=== PATIENT | female | born 1985 | race Caucasian/White ===

== ENCOUNTER 2016-11-26 13:22 | Inpatient (IN) | payer MEDICAID, OTHER ==
[2016-11-26] VITALS (60 sets, daily range): BP systolic 124–133; BP diastolic 63–65; PULSE 77–100; RESP 18; TEMP 98.2–99.3
[~2016-11-26] VITALS: Ht 165.1 cm; Wt 98.9 kg
--- NOTE | 2016-11-26 14:48 | PD ---
HPI Chief Complaint vaginal bleeding Date Seen: Nov 26, 2016 Time Seen: 14:43 Travel History International Travel<30 Days: No Contact w/Intl Traveler<30Days: No Known Affected Area: No History of Present Illness HPI 31-year-old who is at 31 weeks 5 days comes in complaining of vaginal spotting this morning at 11:30. Patient had coitus last night but did not notice any abdomen teas until late this morning when she noticed a small amount of blood after wiping. Patient denies contractions, abdominal pain, or vaginal discharge. Patient states that no further bleeding was noticed. Patient has been obtaining care with Silvia Ayala and denies problems. Para: 0 : 1 History Past Medical History Medical History: Denies Significant Hx Past Surgical History Surgical History: No Previous Surgery Family History Family History: Negative Social History Alcohol Use: No Tobacco Use: No Substance Abuse: No Review of Systems Except as stated in HPI: all other systems reviewed are Neg Physical Exam Narrative GENERAL: Well-nourished, well-developed patient. SKIN: Warm and dry. HEAD: Normocephalic and atraumatic. EYES: No scleral icterus. No injection or drainage. ENT: No nasal drainage noted. Mucous membranes pink. Airway patent. NECK: Supple, trachea midline. No JVD. CARDIOVASCULAR: Regular rate and rhythm without murmurs, gallops, or rubs. RESPIRATORY: Breath sounds equal bilaterally. No accessory muscle use. BREASTS: Bilateral exam showed no masses , no retractions, no nipple discharge. ABDOMEN/GI: Abdomen soft, non-tender, bowel sounds present, no rebound, no guarding Gravid to [-32] weeks size Fundal Height: [-] GENITOURINARY: External Genitalia: intact and normal in appearance BUS glands: [Normal-] copious clear amniotic fluid noted in the vaginal vault. Cervix appears closed Cervix: [-0] Dilatation: [-0] Effacement: [50-] Station: [--3] Presentation: [-] Membranes: [ruptured] Uterine Contractions: [Absent-] Bedside ultrasound noted breech presentation, TASHIA 1.9 FHT's: Category: [1-] Baseline: [-145] Reactive: [Moderate-] Variability: [Moderate-] Decels: [Absent-] EXTREMITIES: No cyanosis or edema. BACK: Nontender without obvious deformity. No CVA tenderness. NEUROLOGICAL: Awake and alert. Motor and sensory grossly within normal limits. Five out of 5 muscle strength in all muscle groups. Normal speech. Data Data Vital Signs Reviewed: Yes Orders Ob (2e) Additional Admit Info (11/26/16 14:36) [facility] Medical Record Reviewed: No Plan 31-year-old at 31 weeks 5 days #1 premature rupture membranes patient not in laborstart betamethasone and IV antibiotics for 48 hours followed by oral antibiotics #2 breech presentation patient will need to be delivered by section #3 limited Englishngarian translation services were utilized for consent and for medical care Diagnosis Diagnosis: Primary Impression: 31 weeks gestation of Additional Impression: premature rupture of membranes (PPROM) with unknown onset of labor Rach Simms MD Nov 26, 2016 14:48
[2016-11-26] MEDS ORDERED: PENICILLIN G POTASSIUM INJ 5,000,000 UNITS in SODIUM CHLORIDE 0.9% INJ 100 ML IV ONE (15:00)
[2016-11-26] MEDS ORDERED: SODIUM CHLORIDE 0.9% FLUSH 10 ML FLUSH IV FLUSH PRN (15:00)
--- NOTE | 2016-11-26 15:09 | HHI.HP ---
History & Physical H&P HPI Chief Complaint vaginal bleeding Date Seen: Nov 26, 2016 Time Seen: 14:43 Travel History International Travel<30 Days: No Contact w/Intl Traveler<30Days: No Known Affected Area: No History of Present Illness HPI 31-year-old who is at 31 weeks 5 days comes in complaining of vaginal spotting this morning at 11:30. Patient had coitus last night but did not notice any abdomen teas until late this morning when she noticed a small amount of blood after wiping. Patient denies contractions, abdominal pain, or vaginal discharge. Patient states that no further bleeding was noticed. Patient has been obtaining care with Silvia Ayala and denies problems. Para: 0 : 1 History (Limited) History Past Medical History Medical History: Denies Significant Hx Past Surgical History Surgical History: No Previous Surgery Family History Family History: Negative Social History Alcohol Use: No Tobacco Use: No Substance Abuse: No Allergies-Medications Allergies-Medications ROS Review of Systems Except as stated in HPI: all other systems reviewed are Neg Physical Exam Physical Exam Narrative GENERAL: Well-nourished, well-developed patient. SKIN: Warm and dry. HEAD: Normocephalic and atraumatic. EYES: No scleral icterus. No injection or drainage. ENT: No nasal drainage noted. Mucous membranes pink. Airway patent. NECK: Supple, trachea midline. No JVD. CARDIOVASCULAR: Regular rate and rhythm without murmurs, gallops, or rubs. RESPIRATORY: Breath sounds equal bilaterally. No accessory muscle use. BREASTS: Bilateral exam showed no masses , no retractions, no nipple discharge. ABDOMEN/GI: Abdomen soft, non-tender, bowel sounds present, no rebound, no guarding Gravid to [-32] weeks size Fundal Height: [-] GENITOURINARY: External Genitalia: intact and normal in appearance BUS glands: [Normal-] copious clear amniotic fluid noted in the vaginal vault. Cervix appears closed Cervix: [-0] Dilatation: [-0] Effacement: [50-] Station: [--3] Presentation: [-] Membranes: [ruptured] Uterine Contractions: [Absent-] Bedside ultrasound noted breech presentation, TASHIA 1.9 FHT's: Category: [1-] Baseline: [-145] Reactive: [Moderate-] Variability: [Moderate-] Decels: [Absent-] EXTREMITIES: No cyanosis or edema. BACK: Nontender without obvious deformity. No CVA tenderness. NEUROLOGICAL: Awake and alert. Motor and sensory grossly within normal limits. Five out of 5 muscle strength in all muscle groups. Normal speech. Data Data Data Vital Signs Reviewed: Yes Orders Ob (2e) Additional Admit Info (11/26/16 14:36) MDM MDM Medical Record Reviewed: No Plan 31-year-old at 31 weeks 5 days #1 premature rupture membranes patient not in laborstart betamethasone and IV antibiotics for 48 hours followed by oral antibiotics - Patient was counselled on labor, section due to breech presentation, and chorioamnionitis. She understands that inpatient care will be necessary with the goal of 34 weeks prior to delivery. Will delivery earlier for signs of infection. #2 breech presentation patient will need to be delivered by section #3 limited EnglishHungarian translation services were utilized for consent and for medical care Diagnosis Diagnosis: Primary Impression: 31 weeks gestation of Additional Impression: premature rupture of membranes (PPROM) with unknown onset of labor Rach Simms MD Nov 26, 2016 15:09
[2016-11-26] MEDS: BETAMETHASONE SOD PHOS/ACETATE SUSP 30 MG/5 ML VIAL IM SCH (15:46)
[2016-11-26] MEDS ORDERED: ACETAMINOPHEN 325 MG TAB PO PRN (16:00)
[2016-11-26 16:04] LABS: AUTOMATED NEUTROPHIL # 13.7 TH/MM3 (1.8-7.7); BASOPHIL % 0.1 % (0.0-2.0); EOSINOPHIL % 0.3 % (0.0-4.0); HEMATOCRIT 39.8 % (35.0-46.0); HEMO FLAGS DIFF FINAL; LYMPH % 15.5 % (9.0-44.0); LYMPHOCYTE # 2.7 TH/MM3 (1.0-4.8); MEAN CELL VOLUME 93.7 FL (80.0-100.0); MEAN CORPUSCULAR HEMOGLOBIN 32.2 PG (27.0-34.0); MEAN CORPUSCULAR HGB CONC 34.3 % (32.0-36.0); MONO % 4.3 % (0.0-8.0); NEUT % 79.8 % (16.0-70.0); PLATELET COUNT 277 TH/MM3 (150-450); RED BLOOD COUNT 4.25 MIL/MM3 (4.00-5.30); WHITE BLOOD COUNT 17.2 TH/MM3 (4.0-11.0)
[2016-11-26 16:12] LABS: BLOOD, URINE NEG (NEG); COMMENT (UR) CULT NOT INDICATED; CULTURE IF INDICATED CULT NOT INDICATED; GLUCOSE,URINE NEG (NEG); KETONE, URINE 40 mg/dL (NEG); MUCUS URINE FEW /lpf (OCC); NITRITE,URINE NEG (NEG); PH, URINE 5.5 (5.0-8.5); SQUAMOUS EPITHELIAL CELL URINE 2 /hpf (0-5); URINE COLOR YELLOW (YELLW/STRAW)
[2016-11-26] MEDS: NON-FORMULARY DRUG 250 EA in SODIUM CHLORIDE 0.9% INJ 100 ML IV SCH ×2 (16:59→22:00)
--- NOTE | 2016-11-26 17:22 | HHI.PR ---
DATA MODELING ARCHITECT Note Note Breech presentation with oligohydramnios by sonogram Formal report to follow [facility] [id number] Rach Simms MD Nov 26, 2016 17:22
[2016-11-26] MEDS: LACTATED RINGER'S 1000 ML INJ 1,000 ML IV SCH ×2 (18:21→18:22)
[2016-11-26] MEDS: PENICILLIN G POTASSIUM INJ 2,500,000 UNITS in SODIUM CHLORIDE 0.9% INJ 100 ML IV SCH (20:01)
[2016-11-26] MEDS: SODIUM CHLORIDE 0.9% FLUSH 10 ML FLUSH IV FLUSH SCH (20:01)
--- NOTE | 2016-11-26 23:01 | HHI.PR ---
Addendum to Inpatient Note Addendum Reason: Additional Documentation Additional Information Consult Maternal Hx: 31 y/o, G 1 P 0 at 31.5 weeks gestation with diagnosis of Labor with PPROM/SROM Maternal risk factors/complications: Breech presentation Maternal Medications: PNV, Iron, Antibiotics Betamethasone first dose on 11/26 Social: Marital status: single Resides locally - has lots of local family support Speaks very little Swedish - needs Persian translation Family Hx: Mother reports no genetic or inherited conditions. Substance Abuse: Denies - preliminary urine tox negative Discussion: Nurse Practitioner met with mother regarding threatened delivery at 31.5 weeks gestation secondary to SROM/PPROM Bedside translation by Neelam Parkinson RN - Labor and Delivery This consultation included information regarding generalized care of the baby in the NICU, common problems, complications and survival and/or disability potential if delivered at this time Also included in this review was the admission process to the NICU, including possible procedures such as intubation and placement of umbilical catheter(s). Additionally, there was a discussion of the disease processes that may affect an of this gestation, including but not limited to respiratory distress, infection and nutritional concerns. Discussion detailed various forms of respiratory support for immature lungs including use of surfactant and placement of lines. Discussion focused on CPAP and/or ventilator support as needed for an infant of this gestation. There was a review of nutritional support challenges including IV and gavage feeding. There was discussion regarding of possible feeding intolerances and intestinal complications. Breast feeding and early breast milk pumping was strongly encouraged. Briefly discussed apnea of prematurity. Mother had questions regarding expected length of baby's hospital stay. Expected discharge would likely occur closer to the due date if the infant has an uncomplicated hospitalization, however may be sooner based on feeding tolerance, weight gain, temperature control, and absence of apnea. Discussed Family Centered Care and liberal NICU visitation policy. Mother and staff aware that we will be glad to speak to her again as her progresses to update her on prognosis related to increasing gestational age. Greater than 50% of the consultation time was spent with the patient. ALEXEY MCCOY Nov 26, 2016 23:01
[2016-11-27] VITALS (59 sets, daily range): BP systolic 107–130; BP diastolic 47–70; PULSE 69–89; RESP 16–18; TEMP 97.7–99.1
[2016-11-27] MEDS: PENICILLIN G POTASSIUM INJ 2,500,000 UNITS in SODIUM CHLORIDE 0.9% INJ 100 ML IV SCH ×5 (04:00→12:16)
[2016-11-27] MEDS: NON-FORMULARY DRUG 250 EA in SODIUM CHLORIDE 0.9% INJ 100 ML IV SCH ×4 (06:00→22:28)
[2016-11-27] MEDS: MULTIVIT/MIN/PREN/FOL AC/IRON PRENATAL TAB PO SCH (08:14)
[2016-11-27] MEDS: LACTATED RINGER'S 1000 ML INJ 1,000 ML IV SCH ×2 (08:14→20:10)
[2016-11-27] MEDS: SODIUM CHLORIDE 0.9% FLUSH 10 ML FLUSH IV FLUSH SCH ×2 (08:14→21:00)
--- NOTE | 2016-11-27 09:51 | PD.OB.ANTE ---
Subjective Interval History No acute issues overnight. Vitals are stable, patient remained afebrile. She endorses good movement. She denies any vaginal bleeding or discharge. No contractions. Antepartum ROS: Reports: movement normal, Denies: New complaints, Loss of fluid, Vaginal bleeding, Contractions ( Lisa Trujillo MD, R3) Objective Vital Signs Vital Signs Date Time Temp Pulse Resp B/P Pulse Ox O2 Delivery O2 Flow Rate FiO2 11/27/16 08:18 78 126/52 11/27/16 08:17 18 11/27/16 08:15 87 11/27/16 08:12 98.3 11/27/16 08:10 85 11/27/16 08:05 87 11/27/16 08:00 84 11/27/16 07:00 16 11/27/16 06:55 75 11/27/16 06:50 71 11/27/16 06:45 78 11/27/16 06:40 72 11/27/16 06:35 89 11/27/16 06:30 73 11/27/16 06:25 74 11/27/16 06:20 70 11/27/16 06:15 71 11/27/16 06:13 72 107/54 11/27/16 06:10 69 11/27/16 06:05 78 11/27/16 06:00 98.1 18 11/27/16 06:00 77 11/27/16 02:00 98.4 18 11/26/16 22:31 98.2 11/26/16 22:31 18 11/26/16 22:30 78 11/26/16 22:30 78 133/63 11/26/16 22:25 78 11/26/16 22:20 81 11/26/16 22:15 85 11/26/16 22:10 84 11/26/16 22:05 84 11/26/16 22:00 81 11/26/16 20:00 18 11/26/16 19:17 99.3 11/26/16 19:16 88 124/64 11/26/16 19:15 88 11/26/16 19:10 90 11/26/16 19:05 93 11/26/16 19:00 87 11/26/16 19:00 18 11/26/16 18:50 91 11/26/16 18:45 93 11/26/16 18:40 91 11/26/16 18:35 93 11/26/16 18:30 94 11/26/16 18:25 94 11/26/16 18:20 96 11/26/16 18:15 96 11/26/16 18:10 97 11/26/16 17:55 90 11/26/16 17:50 91 11/26/16 17:45 91 11/26/16 17:40 100 11/26/16 17:35 93 11/26/16 17:32 98.5 11/26/16 17:30 84 11/26/16 17:25 81 11/26/16 17:20 81 11/26/16 17:15 86 11/26/16 17:10 85 11/26/16 17:06 18 11/26/16 17:05 83 11/26/16 17:04 84 128/65 11/26/16 16:50 88 11/26/16 16:45 88 11/26/16 16:40 88 11/26/16 16:35 86 11/26/16 16:30 81 11/26/16 16:25 82 11/26/16 16:20 79 11/26/16 16:15 80 11/26/16 16:10 83 11/26/16 16:05 84 11/26/16 16:00 83 11/26/16 15:35 80 11/26/16 15:30 82 11/26/16 15:25 82 11/26/16 15:20 82 11/26/16 15:15 81 11/26/16 15:10 78 11/26/16 15:05 81 11/26/16 15:00 85 11/26/16 14:55 87 11/26/16 14:50 77 11/26/16 14:45 82 Lab & Micro Results Test 11/26/16 11/26/16 15:00 15:15 White Blood Count 17.2 TH/MM3 Red Blood Count 4.25 MIL/MM3 Hemoglobin 13.7 GM/DL Hematocrit 39.8 % Mean Corpuscular Volume 93.7 FL Mean Corpuscular Hemoglobin 32.2 PG Mean Corpuscular Hemoglobin 34.3 % Concent Red Cell Distribution Width 13.0 % Platelet Count 277 TH/MM3 Mean Platelet Volume 9.3 FL Neutrophils (%) (Auto) 79.8 % Lymphocytes (%) (Auto) 15.5 % Monocytes (%) (Auto) 4.3 % Eosinophils (%) (Auto) 0.3 % Basophils (%) (Auto) 0.1 % Neutrophils # (Auto) 13.7 TH/MM3 Lymphocytes # (Auto) 2.7 TH/MM3 Monocytes # (Auto) 0.7 TH/MM3 Eosinophils # (Auto) 0.0 TH/MM3 Basophils # (Auto) 0.0 TH/MM3 CBC Comment DIFF FINAL Differential Comment Band and Hold Urine Color YELLOW Urine Turbidity HAZY Urine pH 5.5 Urine Specific Thornton 1.027 Urine Protein TRACE mg/dL Urine Glucose (UA) NEG mg/dL Urine Ketones 40 mg/dL Urine Occult Blood NEG Urine Nitrite NEG Urine Bilirubin NEG Urine Urobilinogen LESS THAN 2.0 MG/DL Urine Leukocyte Esterase NEG Urine RBC 1 /hpf Urine WBC 2 /hpf Urine Squamous Epithelial 2 /hpf Cells Urine Mucus FEW /lpf Microscopic Urinalysis Comment CULT NOT INDICATED Urine Opiates Screen NEG Urine Barbiturates Screen NEG Urine Amphetamines Screen NEG Urine Benzodiazepines Screen NEG Urine Cocaine Screen NEG Urine Cannabinoids Screen NEG Physical Exam GENERAL: Well-nourished, well-developed patient. CARDIOVASCULAR: Regular rate and rhythm without murmurs, gallops, or rubs. RESPIRATORY: Breath sounds equal bilaterally. No accessory muscle use. ABDOMEN/GI: Abdomen soft, non-tender. Fundus: 31 GENITOURINARY: External Genitalia: intact and normal in appearance Cervix: posterior Dilatation: 0 Effacement: 0 Station: -3 Presentation: breech Membranes: PPROM Uterine Contractions: None FHT's: Category: I Baseline: 135 Reactive: + Variability: moderate Decels: none EXTREMITIES: No cyanosis or edema, non-tender, without signs of DVT. (Lisa Trujillo MD, R3) Assessment and Plan Assessment and Plan 31 year old at 31-6/7 weeks gestation. 1. IUP- Category I tracing, reassuring. 2. PPROM- Continue erythromycin and penicillin. Will obtain GBS PCR today. s/p Betamethasone yesterday, second dose today. 3. Breech presentation dw Dr. Simms and Dr. Malhotra R1 (Lisa Trujillo MD, R3) Collaborating MD Comments Patient seen and evaluated with resident team. Continue present care with antibiotics and complete betamethasone. (Rach Simms MD) Lisa Trujillo MD, R3 Nov 27, 2016 09:51 Rach Simms MD Nov 28, 2016 11:02
[2016-11-27] MEDS: AMPICILLIN INJ 2,000 MG in SODIUM CHLORIDE 0.9% INJ 100 ML IV SCH ×2 (15:08→20:50)
[2016-11-27] MEDS: BETAMETHASONE SOD PHOS/ACETATE SUSP 30 MG/5 ML VIAL IM SCH (16:04)
[2016-11-28] VITALS (105 sets, daily range): BP systolic 118–131; BP diastolic 56–63; PULSE 69–93; RESP 18; TEMP 97.7–98.5
[2016-11-28] MEDS: AMPICILLIN INJ 2,000 MG in SODIUM CHLORIDE 0.9% INJ 100 ML IV SCH ×3 (03:18→14:57)
[2016-11-28] MEDS: NON-FORMULARY DRUG 250 EA in SODIUM CHLORIDE 0.9% INJ 100 ML IV SCH ×2 (04:34→10:04)
[2016-11-28 06:07] LABS: AUTOMATED NEUTROPHIL # 19.5 TH/MM3 (1.8-7.7); HEMATOCRIT 33.5 % (35.0-46.0); LYMPH % 8.6 % (9.0-44.0); LYMPHOCYTE # 1.9 TH/MM3 (1.0-4.8); MEAN CELL VOLUME 93.4 FL (80.0-100.0); MEAN CORPUSCULAR HEMOGLOBIN 31.9 PG (27.0-34.0); MEAN CORPUSCULAR HGB CONC 34.1 % (32.0-36.0); MONO % 4.6 % (0.0-8.0); NEUT % 86.8 % (16.0-70.0); PLATELET COUNT 226 TH/MM3 (150-450); RED BLOOD COUNT 3.59 MIL/MM3 (4.00-5.30); WHITE BLOOD COUNT 22.4 TH/MM3 (4.0-11.0)
[2016-11-28 06:13] LABS: HEMO FLAGS AUTO DIFF
[2016-11-28 07:46] LABS: BANDS 11 % (0-6); NEUTROPHIL # MANUAL DIFF 19.9 TH/MM3 (1.8-7.7); PLATELET ESTIMATE SMEAR NORMAL (NORMAL); PLATELET MORPHOLOGY NORMAL (NORMAL); POLYS (SEG NEUTROPHILS) 78 % (16-70); SCAN/DIFF FINAL DIFF MANUAL; WBC DIFF SAMPLE 100
--- NOTE | 2016-11-28 07:59 | PD.OB.ANTE ---
Subjective Interval History No acute issues overnight. Vitals are stable, patient remains afebrile. Positive movement. No contractions or vaginal bleeding. No chest pain, leg pain, or shortness of breath. Antepartum ROS: Reports: movement normal, Denies: New complaints, Loss of fluid, Vaginal bleeding, Contractions Objective Vital Signs Vital Signs Date Time Temp Pulse Resp B/P Pulse Ox O2 Delivery O2 Flow Rate FiO2 11/28/16 03:22 93 118/60 11/28/16 03:21 98.3 11/28/16 03:20 86 11/28/16 03:20 18 11/28/16 03:15 84 11/28/16 03:10 84 11/28/16 03:05 84 11/28/16 03:00 82 11/28/16 00:17 69 130/56 11/28/16 00:16 97.7 18 11/28/16 00:15 74 11/28/16 00:05 77 11/28/16 00:00 79 11/27/16 22:29 98.5 11/27/16 20:56 98.0 80 129/70 11/27/16 20:55 81 11/27/16 20:55 16 11/27/16 20:50 80 11/27/16 20:45 82 11/27/16 20:40 81 11/27/16 20:35 80 11/27/16 20:30 79 11/27/16 20:25 82 11/27/16 20:20 77 11/27/16 20:15 83 11/27/16 20:10 84 11/27/16 20:05 83 11/27/16 20:00 82 11/27/16 15:55 77 11/27/16 15:50 76 11/27/16 15:45 75 11/27/16 15:40 73 11/27/16 15:35 74 11/27/16 15:30 75 11/27/16 15:25 78 11/27/16 15:20 78 11/27/16 15:15 84 11/27/16 15:13 80 116/47 11/27/16 15:10 98.1 16 11/27/16 15:10 81 11/27/16 15:05 82 11/27/16 15:00 81 11/27/16 12:30 81 11/27/16 12:28 16 11/27/16 12:25 78 11/27/16 12:20 73 11/27/16 12:15 82 130/68 11/27/16 12:15 84 11/27/16 12:14 99.1 11/27/16 12:10 82 11/27/16 12:05 80 11/27/16 12:00 85 11/27/16 10:11 97.7 11/27/16 08:18 78 126/52 11/27/16 08:17 18 11/27/16 08:15 87 11/27/16 08:12 98.3 11/27/16 08:10 85 11/27/16 08:05 87 11/27/16 08:00 84 Lab & Micro Results Test 11/27/16 11/28/16 09:25 04:46 Group B Streptococcus (PCR) NEGATIVE White Blood Count 22.4 TH/MM3 Red Blood Count 3.59 MIL/MM3 Hemoglobin 11.4 GM/DL Hematocrit 33.5 % Mean Corpuscular Volume 93.4 FL Mean Corpuscular Hemoglobin 31.9 PG Mean Corpuscular Hemoglobin 34.1 % Concent Red Cell Distribution Width 13.0 % Platelet Count 226 TH/MM3 Mean Platelet Volume 9.2 FL Neutrophils (%) (Auto) 86.8 % Lymphocytes (%) (Auto) 8.6 % Monocytes (%) (Auto) 4.6 % Eosinophils (%) (Auto) 0.0 % Basophils (%) (Auto) 0.0 % Neutrophils # (Auto) 19.5 TH/MM3 Lymphocytes # (Auto) 1.9 TH/MM3 Monocytes # (Auto) 1.0 TH/MM3 Eosinophils # (Auto) 0.0 TH/MM3 Basophils # (Auto) 0.0 TH/MM3 CBC Comment AUTO DIFF Differential Total Cells 100 Counted Neutrophils % (Manual) 78 % Band Neutrophils % 11 % Lymphocytes % 9 % Monocytes % 2 % Neutrophils # (Manual) 19.9 TH/MM3 Differential Comment FINAL DIFF MANUAL Platelet Estimate NORMAL Platelet Morphology Comment NORMAL Red Cell Morphology Comment NORMAL Date/Time Procedure Status Source Growth 11/27/16 09:25 Group B Streptococcus Screen Received Genital Genital Region Pending Physical Exam GENERAL: Well-nourished, well-developed patient. CARDIOVASCULAR: Regular rate and rhythm without murmurs, gallops, or rubs. RESPIRATORY: Breath sounds equal bilaterally. No accessory muscle use. ABDOMEN/GI: Abdomen soft, non-tender. Fundus: 32 GENITOURINARY: External Genitalia: intact and normal in appearance Cervix: posterior Dilatation: 0 Effacement: 0 Station: -2 Presentation: breech Membranes: SROM Uterine Contractions: none FHT's: Category: I Baseline: 145 Reactive: + Variability: moderate Decels: none EXTREMITIES: No cyanosis or edema, non-tender, without signs of DVT. Assessment and Plan Assessment and Plan 31 year old at 32-0/7 weeks gestation. 1. IUP- Category I tracing, reassuring. 2. PPROM- Continue IV ampicillin and erythromycin x 48 hours. Will switch to PO amoxicillin and erythromycin this afternoon at 48 hour harish. GBS negative. s/p Betamethasone x 2. 3. Breech presentation dw Dr. Chauhan and Dr. Malhotra R1 Lisa Trujillo MD, R3 Nov 28, 2016 07:59
[2016-11-28] MEDS: SODIUM CHLORIDE 0.9% FLUSH 10 ML FLUSH IV FLUSH SCH ×2 (09:00→21:00)
[2016-11-28] MEDS: MULTIVIT/MIN/PREN/FOL AC/IRON PRENATAL TAB PO SCH (09:38)
[2016-11-28] MEDS: LACTATED RINGER'S 1000 ML INJ 1,000 ML IV SCH ×2 (17:20→22:50)
[2016-11-28] MEDS: ERYTHROMYCIN EC 333 MG TABEC PO SCH ×2 (17:21→22:00)
[2016-11-28] MEDS: AMOXICILLIN (TRIHYDRATE) 250 MG CAP PO SCH ×2 (17:21→22:00)
[2016-11-29] VITALS (233 sets, daily range): BP systolic 129–133; BP diastolic 61–66; PULSE 66–101; RESP 9–19; TEMP 97.9–98.7
[2016-11-29] MEDS: AMOXICILLIN (TRIHYDRATE) 250 MG CAP PO SCH ×3 (06:10→20:57)
[2016-11-29] MEDS: ERYTHROMYCIN EC 333 MG TABEC PO SCH ×3 (06:10→20:57)
--- NOTE | 2016-11-29 08:15 | PD.OB.ANTE ---
Subjective Interval History No acute issues overnight. Vitals are stable, patient remains afebrile. She denies any contractions, but continues to feel leaking fluid. Yesterday, around 3 in the afternoon she felt a large gush of fluid. She continues to have good movement. No vaginal bleeding. No chest pain, shortness of breath, or leg pain. Antepartum ROS: Reports: Loss of fluid, movement normal, Denies: New complaints, Vaginal bleeding, Contractions Objective Vital Signs Vital Signs Date Time Temp Pulse Resp B/P Pulse Ox O2 Delivery O2 Flow Rate FiO2 11/29/16 07:18 97.9 11/29/16 07:10 80 11/29/16 07:05 77 11/29/16 07:00 67 11/29/16 06:55 98 11/29/16 06:45 70 11/29/16 06:40 69 11/29/16 06:35 69 11/29/16 06:30 69 11/29/16 06:25 75 11/29/16 06:20 74 11/29/16 06:15 69 11/29/16 06:10 80 11/29/16 06:05 75 11/29/16 06:00 73 11/29/16 05:55 76 11/29/16 05:50 71 11/29/16 05:45 76 11/29/16 05:40 72 11/29/16 05:35 67 11/29/16 05:30 66 11/29/16 05:25 69 11/29/16 05:20 70 11/29/16 05:15 70 11/29/16 05:10 70 11/29/16 05:05 71 11/29/16 05:00 72 11/29/16 04:55 71 11/29/16 04:50 71 11/29/16 04:45 73 11/29/16 04:40 74 11/29/16 04:35 70 11/29/16 04:30 71 11/29/16 04:25 74 11/29/16 04:20 73 11/29/16 04:15 75 11/29/16 04:10 71 11/29/16 04:05 74 11/29/16 04:00 72 11/29/16 03:55 75 11/29/16 03:50 81 11/29/16 03:45 74 8/16/17 03:40 76 16/17 03:35 70 16/17 03:30 71 16/17 03:25 71 1617 03:20 69 16/17 03:15 69 16/17 03:10 69 1617 03:05 69 1617 03:00 70 16 02:55 71 16 02:50 69 1617 02:45 70 1617 02:40 71 1617 02:35 70 1617 02:30 71 1617 02:25 72 1617 02:20 73 16 02:15 71 11/29/16 02:10 71 11/29/16 02:05 80 16 02:00 87 11/29/16 01:55 85 16 01:50 78 1617 01:45 78 1617 01:40 78 1617 01:35 76 1617 01:30 76 1617 01:25 75 1617 01:20 77 1617 01:15 75 16 01:10 74 16 01:05 77 11/29/16 01:00 77 16 00:55 76 1617 00:50 72 1617 00:45 68 1617 00:40 75 1617 00:30 71 1617 00:25 71 1617 00:20 72 1617 00:15 70 1617 00:10 75 1617 00:05 72 16 00:00 71 11/28/16 23:55 71 11/28/16 23:50 71 17 23:45 73 17 23:40 73 1517 23:35 73 1517 23:30 74 17 23:25 72 1517 23:20 84 1517 23:15 74 11/28/16 23:10 76 11/28/16 23:05 89 11/28/16 20:55 80 11/2817 20:50 75 15/17 20:45 82 1517 20:40 76 1517 20:35 76 1517 20:30 74 1517 20:25 75 1517 20:20 77 1517 20:15 77 15 20:10 80 15 20:02 77 121/59 11/28/16 20:00 79 15 19:55 78 1517 19:50 77 1517 19:45 76 1517 19:40 78 15 19:35 80 15 19:30 80 15 19:25 80 15 19:20 81 17 19:15 81 15 19:10 82 15 19:05 77 15 19:00 81 17 16:55 93 1517 16:50 83 1517 16:45 82 1517 16:40 73 1517 16:35 80 1517 16:30 78 1517 16:25 75 1517 16:15 85 1517 16:10 77 1517 16:05 77 1517 16:00 90 1517 15:50 77 1517 15:45 83 1517 15:40 89 1517 15:35 79 1517 15:30 77 1517 15:25 80 1517 15:20 79 1517 15:15 82 1517 15:10 89 1517 15:05 84 1517 15:00 81 1517 13:55 87 1517 13:50 91 1517 13:45 88 15/17 13:40 89 1517 13:35 90 15/17 13:30 89 15/17 13:25 88 15/17 13:20 91 1517 13:15 89 1517 13:10 89 11/28/16 13:05 91 11/28/16 13:00 88 11/28/16 12:55 91 11/28/16 12:50 91 11/28/16 12:45 89 11/28/16 12:40 81 11/28/16 12:35 78 11/28/16 12:30 86 11/28/16 12:25 79 11/28/16 12:20 81 11/28/16 12:15 84 11/28/16 12:10 79 11/28/16 12:09 98.1 11/28/16 12:09 18 11/28/16 12:07 81 131/63 11/28/16 12:00 74 11/28/16 09:41 18 11/28/16 09:40 92 11/28/16 09:37 85 118/63 11/28/16 09:35 98.5 11/28/16 09:35 88 11/28/16 09:30 82 11/28/16 09:25 85 11/28/16 09:20 89 11/28/16 09:15 89 11/28/16 09:10 91 11/28/16 09:05 87 11/28/16 09:00 89 Lab & Micro Results Date/Time Procedure Status Source Growth 11/27/16 09:25 Group B Streptococcus Screen - Preliminary Resulted Genital Genital Region RESULTS PENDING Physical Exam GENERAL: Well-nourished, well-developed patient. CARDIOVASCULAR: Regular rate and rhythm without murmurs, gallops, or rubs. RESPIRATORY: Breath sounds equal bilaterally. No accessory muscle use. ABDOMEN/GI: Abdomen soft, non-tender. Fundus: 32 GENITOURINARY: External Genitalia: intact and normal in appearance Presentation: breech Membranes: SROM Uterine Contractions: none FHT's: Category: I Baseline: 140 Reactive: + Variability: moderate Decels: none EXTREMITIES: No cyanosis or edema, non-tender, without signs of DVT. Assessment and Plan Assessment and Plan 31 year old at 32-1/7 weeks gestation. 1. IUP- Category I tracing, reassuring. 2. PPROM- s/p IV ampicillin and erythromycin x 48 hours. Now on amoxicillin 250mg PO Q8H and erythromycin 333mg PO Q8H (both started 11/28/16 at 1721). GBS negative. s/p Betamethasone x 2. 3. Breech presentation dw Dr. Simms and Dr. Malhotra R1 Lisa Trujillo MD, R3 Nov 29, 2016 08:15
[2016-11-29] MEDS: MULTIVIT/MIN/PREN/FOL AC/IRON PRENATAL TAB PO SCH (08:35)
[2016-11-29] MEDS: SODIUM CHLORIDE 0.9% FLUSH 10 ML FLUSH IV FLUSH SCH ×2 (08:35→21:00)
[2016-11-29] MEDS: ZOLPIDEM TARTRATE 5 MG TAB PO PRN (22:44)
[2016-11-30] VITALS (25 sets, daily range): BP systolic 109–121; BP diastolic 38–60; PULSE 72–106; RESP 18; TEMP 98–98.3
[2016-11-30] MEDS: AMOXICILLIN (TRIHYDRATE) 250 MG CAP PO SCH ×3 (06:54→22:01)
[2016-11-30] MEDS: LACTATED RINGER'S 1000 ML INJ 1,000 ML IV SCH ×3 (06:54→22:01)
[2016-11-30] MEDS: ERYTHROMYCIN EC 333 MG TABEC PO SCH ×3 (06:54→22:01)
--- NOTE | 2016-11-30 07:08 | PD.OB.ANTE ---
Subjective Interval History No acute issues overnight. Vitals are stable, patient remains afebrile. She denies any contractions. She did have a small amount of bleeding last night. She continues to feel leaking fluid. Positive movement. No chest pain, shortness of breath, fever, chills, nausea or vomiting. Antepartum ROS: Reports: Loss of fluid, Vaginal bleeding (small amount last night), movement normal, Denies: New complaints, Contractions Objective Vital Signs Vital Signs Date Time Temp Pulse Resp B/P Pulse Ox O2 Delivery O2 Flow Rate FiO2 11/30/16 06:55 98.0 79 18 11/30/16 06:54 121/60 11/30/16 05:55 75 11/30/16 04:50 86 11/30/16 03:55 88 11/30/16 02:55 72 11/30/16 02:00 98.0 18 11/30/16 01:55 77 11/30/16 00:55 80 11/29/16 23:50 83 11/29/16 22:55 75 11/29/16 22:48 98.0 18 11/29/16 22:45 80 11/29/16 22:40 74 11/29/16 22:38 132/66 11/29/16 22:35 77 11/29/16 21:55 81 11/29/16 20:55 88 11/29/16 20:40 79 11/29/16 20:38 98.7 18 11/29/16 20:37 76 129/62 11/29/16 19:50 78 11/29/16 19:20 82 11/29/16 19:15 80 11/29/16 19:10 81 11/29/16 19:05 81 11/29/16 19:00 86 11/29/16 18:55 87 11/29/16 18:45 82 11/29/16 18:40 82 11/29/16 18:35 80 11/29/16 18:30 83 11/29/16 18:25 84 11/29/16 18:20 83 11/29/16 18:15 76 11/29/16 18:10 86 11/29/16 18:05 85 11/29/16 18:00 81 11/29/16 18:00 18 11/29/16 17:55 87 8/16/17 17:50 81 8/16/17 17:45 80 8/16/17 17:35 87 8/16/17 17:30 86 8/16/17 17:25 84 816/17 17:20 86 816/17 17:15 84 816/17 17:10 86 816/17 17:05 86 16/17 17:00 86 16/17 17:00 98.6 16/17 17:00 18 816/17 16:55 88 16/17 16:50 81 16/17 16:45 83 16/17 16:40 79 16/17 16:35 82 16/17 16:30 86 16/17 16:20 101 16/17 16:05 79 16/17 16:00 80 16/17 16:00 17 16/17 15:55 80 16/17 15:50 78 16/17 15:45 78 16/17 15:40 80 16/17 15:35 77 8/16/17 15:30 95 16/17 15:25 81 /16/17 15:20 80 16/17 15:15 83 16/17 15:10 81 16/17 15:05 78 16/17 15:00 17 16/17 15:00 81 16/17 14:55 83 /16/17 14:50 92 16/17 14:45 83 16/17 14:40 79 16/17 14:35 77 816/17 14:25 85 8/16/17 14:20 81 8/16/17 14:15 88 816/17 14:10 86 8/16/17 14:05 85 8/16/17 14:00 94 8/16/17 14:00 19 8/16/17 13:55 82 8/16/17 13:50 85 8/16/17 13:45 81 8/16/17 13:40 82 8/16/17 13:35 80 8/16/17 13:33 98.5 8/16/17 13:30 88 8/16/17 13:25 85 8/16/17 13:20 88 8/16/17 13:15 86 8/16/17 13:10 100 /16/17 13:00 82 8/16/17 13:00 18 816/17 12:55 88 816/17 12:50 82 8/16/17 12:45 84 8/16/17 12:40 83 8/16/17 12:35 88 16/17 12:30 87 /16/17 12:25 81 16/17 12:20 77 16/17 12:15 79 816/17 12:10 79 16/17 12:05 78 16/17 12:00 18 16/17 12:00 75 16/17 11:55 82 16/17 11:50 78 16/17 11:50 78 16/17 11:45 87 /16/17 11:45 87 16/17 11:35 78 16/17 11:35 78 16/17 11:30 81 16/17 11:30 81 8/16/17 11:25 85 8/16/17 11:25 85 8/16/17 11:20 83 8/16/17 11:15 93 8/16/17 11:05 82 8/16/17 11:00 97.9 16/17 11:00 73 8/16/17 11:00 18 816/17 10:55 74 8/16/17 10:50 72 8/16/17 10:45 73 8/16/17 10:40 74 8/16/17 10:35 78 8/16/17 10:30 76 8/16/17 10:25 77 8/16/17 10:20 81 8/16/17 10:15 82 8/16/17 10:10 76 8/16/17 10:00 19 8/16/17 10:00 9 8/16/17 09:40 83 8/16/17 09:35 81 8/16/17 09:30 85 8/16/17 09:25 86 8/16/17 09:20 83 8/16/17 09:15 85 8/16/17 09:10 82 816/17 09:05 86 16/17 09:00 18 8/16/17 09:00 92 11/29/16 08:55 82 11/29/16 08:50 80 11/29/16 08:45 80 11/29/16 08:40 85 11/29/16 08:35 80 11/29/16 08:30 84 11/29/16 08:25 84 11/29/16 08:20 80 11/29/16 08:15 80 11/29/16 08:10 82 11/29/16 08:05 82 11/29/16 08:00 89 11/29/16 08:00 18 11/29/16 07:55 88 11/29/16 07:50 85 11/29/16 07:40 84 11/29/16 07:35 83 11/29/16 07:30 78 11/29/16 07:25 82 11/29/16 07:20 79 11/29/16 07:18 97.9 11/29/16 07:17 76 133/61 11/29/16 07:15 83 11/29/16 07:10 80 Lab & Micro Results Date/Time Procedure Status Source Growth 11/27/16 09:25 Group B Streptococcus Screen - Preliminary Resulted Genital Genital Region NO GROUP B STREP ISOLATED Physical Exam GENERAL: Well-nourished, well-developed patient. CARDIOVASCULAR: Regular rate and rhythm without murmurs, gallops, or rubs. RESPIRATORY: Breath sounds equal bilaterally. No accessory muscle use. ABDOMEN/GI: Abdomen soft, non-tender. Fundus: 32 GENITOURINARY: External Genitalia: intact and normal in appearance Presentation: breech Membranes: SROM Uterine Contractions: none FHT's: Category: I Baseline: 150 Reactive: + Variability: moderate Decels: None EXTREMITIES: No cyanosis or edema, non-tender, without signs of DVT. Assessment and Plan Assessment and Plan 31 year old at 32-2/7 weeks gestation. 1. IUP- Category I tracing, reassuring. 2. PPROM- s/p IV ampicillin and erythromycin x 48 hours. Now on amoxicillin 250mg PO Q8H and erythromycin 333mg PO Q8H x 5 days (both started 11/28/16 at 1721). GBS negative. s/p Betamethasone x 2. 3. Breech presentation 4. Obtain BPP/US to evaluate TASHIA, growth parameters, and EFW dw Dr. Chauhan and Dr. Malhotra R1 Lisa Trujillo MD, R3 Nov 30, 2016 07:07
[2016-11-30] MEDS: MULTIVIT/MIN/PREN/FOL AC/IRON PRENATAL TAB PO SCH (08:49)
[2016-11-30] MEDS: SODIUM CHLORIDE 0.9% FLUSH 10 ML FLUSH IV FLUSH SCH ×2 (09:00→21:00)
[2016-11-30 17:28] LABS: BASOPHIL % 0.1 % (0.0-2.0); EOSINOPHIL # 0.1 TH/MM3 (0-0.4); EOSINOPHIL % 0.3 % (0.0-4.0); HEMATOCRIT 36.4 % (35.0-46.0); HEMO FLAGS DIFF FINAL; LYMPH % 13.2 % (9.0-44.0); LYMPHOCYTE # 2.8 TH/MM3 (1.0-4.8); MEAN CELL VOLUME 95.1 FL (80.0-100.0); MEAN CORPUSCULAR HEMOGLOBIN 31.7 PG (27.0-34.0); MEAN CORPUSCULAR HGB CONC 33.3 % (32.0-36.0); MONO % 7.4 % (0.0-8.0); PLATELET COUNT 268 TH/MM3 (150-450); RED BLOOD COUNT 3.82 MIL/MM3 (4.00-5.30); WHITE BLOOD COUNT 21.6 TH/MM3 (4.0-11.0)
[2016-12-01] VITALS (19 sets, daily range): BP systolic 116–138; BP diastolic 53–68; PULSE 80–94; RESP 16–18; TEMP 98–98.4
[2016-12-01 05:51] LABS: HEMATOCRIT 38.1 % (35.0-46.0); MEAN CELL VOLUME 95.2 FL (80.0-100.0); MEAN CORPUSCULAR HEMOGLOBIN 31.8 PG (27.0-34.0); MEAN CORPUSCULAR HGB CONC 33.4 % (32.0-36.0); PLATELET COUNT 260 TH/MM3 (150-450); RED CELL DISTRIBUTION WIDTH 13.1 % (11.6-17.2); REVIEW FLAG FINAL; WHITE BLOOD COUNT 22.1 TH/MM3 (4.0-11.0)
[2016-12-01] MEDS: ERYTHROMYCIN EC 333 MG TABEC PO SCH ×3 (07:02→21:44)
[2016-12-01] MEDS: LACTATED RINGER'S 1000 ML INJ 1,000 ML IV SCH ×2 (07:02→19:30)
[2016-12-01] MEDS: AMOXICILLIN (TRIHYDRATE) 250 MG CAP PO SCH ×3 (07:02→21:44)
[2016-12-01] MEDS: MULTIVIT/MIN/PREN/FOL AC/IRON PRENATAL TAB PO SCH (08:55)
[2016-12-01] MEDS: SODIUM CHLORIDE 0.9% FLUSH 10 ML FLUSH IV FLUSH SCH ×2 (08:56→20:21)
[2016-12-01 09:31] LABS: BATH SALTS (MDPV) UR NEG (NEG); ECSTASY (MDMA) UR NEG (NEG); GABAPENTIN UR NEG (NEG); HEROIN (6-ACETYLMORPHINE) UR NEG (NEG); HYDROMORPHONE U NEG (NEG); K2 SPICE UR NEG (NEG); OBMETHADONE UR NEG (NEG); PHENCYCLIDINE URINE NEG (NEG)
--- NOTE | 2016-12-01 09:57 | PD.OB.ANTE ---
Subjective Interval History No acute issues overnight. Vitals are stable, patient remains afebrile. She denies any fever, chills, headache, nausea, vomiting, diarrhea, abdominal pain, contractions, vaginal bleeding or discharge. She is feeling the baby moving well. Antepartum ROS: Reports: Loss of fluid, movement normal, Denies: New complaints, Vaginal bleeding, Contractions Objective Vital Signs Vital Signs Date Time Temp Pulse Resp B/P Pulse Ox O2 Delivery O2 Flow Rate FiO2 12/01/16 08:45 90 12/01/16 08:40 87 12/01/16 08:35 80 12/01/16 08:30 88 12/01/16 08:25 89 12/01/16 08:20 92 12/01/16 08:05 98.0 18 12/01/16 08:03 82 120/53 12/01/16 05:00 16 12/01/16 03:00 18 12/01/16 00:54 98.4 130/66 12/01/16 00:54 84 12/01/16 00:53 16 11/30/16 23:20 75 11/30/16 22:55 73 11/30/16 22:00 18 11/30/16 21:55 78 11/30/16 20:55 106 11/30/16 19:55 81 11/30/16 19:41 119/59 11/30/16 19:40 84 11/30/16 19:40 98.3 18 11/30/16 18:50 84 11/30/16 16:13 82 109/38 11/30/16 16:00 98.0 18 11/30/16 15:15 85 11/30/16 15:10 89 11/30/16 15:05 89 11/30/16 15:00 89 11/30/16 12:25 81 18 118/51 Lab & Micro Results Test 11/30/16 12/01/16 16:52 04:46 White Blood Count 21.6 TH/MM3 22.1 TH/MM3 Red Blood Count 3.82 MIL/MM3 4.00 MIL/MM3 Hemoglobin 12.1 GM/DL 12.7 GM/DL Hematocrit 36.4 % 38.1 % Mean Corpuscular Volume 95.1 FL 95.2 FL Mean Corpuscular Hemoglobin 31.7 PG 31.8 PG Mean Corpuscular Hemoglobin 33.3 % 33.4 % Concent Red Cell Distribution Width 13.0 % 13.1 % Platelet Count 268 TH/MM3 260 TH/MM3 Mean Platelet Volume 8.9 FL 9.0 FL Neutrophils (%) (Auto) 79.0 % Lymphocytes (%) (Auto) 13.2 % Monocytes (%) (Auto) 7.4 % Eosinophils (%) (Auto) 0.3 % Basophils (%) (Auto) 0.1 % Neutrophils # (Auto) 17.0 TH/MM3 Lymphocytes # (Auto) 2.8 TH/MM3 Monocytes # (Auto) 1.6 TH/MM3 Eosinophils # (Auto) 0.1 TH/MM3 Basophils # (Auto) 0.0 TH/MM3 CBC Comment DIFF FINAL Differential Comment Date/Time Procedure Status Source Growth 11/27/16 09:25 Group B Streptococcus Screen - Final Complete Genital Genital Region NO GROUP B STREP ISOLATED Physical Exam GENERAL: Well-nourished, well-developed patient. CARDIOVASCULAR: Regular rate and rhythm without murmurs, gallops, or rubs. RESPIRATORY: Breath sounds equal bilaterally. No accessory muscle use. ABDOMEN/GI: Abdomen soft, non-tender. Fundus: 32 GENITOURINARY: External Genitalia: intact and normal in appearance Presentation: breech Membranes: SROM Uterine Contractions: none FHT's: Category: I Baseline: 150 Reactive: + Variability: moderate Decels: none EXTREMITIES: No cyanosis or edema, non-tender, without signs of DVT. Assessment and Plan Assessment and Plan 31 year old at 32-3/7 weeks gestation. 1. IUP- Category I tracing, reassuring. 2. PPROM- s/p IV ampicillin and erythromycin x 48 hours. Now on amoxicillin 250mg PO Q8H and erythromycin 333mg PO Q8H x 5 days (both started 11/28/16 at 1721). GBS negative. s/p Betamethasone x 2. 3. Breech presentation 4.BPP 09/21 US shows TASHIA 0, breech presentation 5. Expectant management, continue to monitor for fever/signs/symptoms of infection. Plan for at [address] Simms and Dr. Malhotra R1 Lisa Trujillo MD, R3 Dec 01, 2016 09:57
[2016-12-02] VITALS (35 sets, daily range): BP systolic 116–136; BP diastolic 49–65; PULSE 72–92; RESP 16–20; TEMP 98.1–98.6
[2016-12-02] MEDS: ERYTHROMYCIN EC 333 MG TABEC PO SCH ×3 (06:14→21:28)
[2016-12-02] MEDS: AMOXICILLIN (TRIHYDRATE) 250 MG CAP PO SCH ×3 (06:14→21:28)
--- NOTE | 2016-12-02 09:26 | PD.OB.ANTE ---
Subjective Diagnosis: (1) premature rupture of membranes (PPROM) with unknownonset of labor (2) with 32 completed weeks gestation Interval History No acute issues overnight. Vitals are stable, patient remains afebrile. She denies any fever, chills, headache, nausea, vomiting, diarrhea, abdominal pain, contractions, vaginal bleeding or discharge. She is feeling the baby moving well. Antepartum ROS: Denies: New complaints, Loss of fluid, Vaginal bleeding, movement normal, Contractions Objective Vital Signs Vital Signs Date Time Temp Pulse Resp B/P Pulse Ox O2 Delivery O2 Flow Rate FiO2 12/02/16 01:45 98.1 12/01/16 19:33 16 12/01/16 19:32 98.2 12/01/16 19:30 86 116/64 12/01/16 16:04 18 12/01/16 16:03 94 138/68 12/01/16 12:31 83 129/62 12/01/16 12:30 98.0 Physical Exam GENERAL: Well-nourished, well-developed female in no apparent distress. CARDIOVASCULAR: Regular rate and rhythm without murmurs, gallops, or rubs. RESPIRATORY: Breath sounds equal bilaterally. No accessory muscle use. ABDOMEN/GI: Abdomen soft, non-tender. Fundus: nontender above umbilicus GENITOURINARY: External Genitalia: deferred FHT's: qshift Category: 1 Baseline: 150s Reactive: 170s Variability: mod Decels: absent CTX: mild irritability EXTREMITIES: No cyanosis or edema, non-tender, without signs of DVT. Assessment and Plan Assessment and Plan 31 year old at 32-4/7 weeks gestation. 1. IUP- Category I tracing, reassuring. 2. PPROM- s/p IV ampicillin and erythromycin x 48 hours. Now on amoxicillin 250mg PO Q8H and erythromycin 333mg PO Q8H x 5+ days (both started 11/28/16 at 1721). GBS negative. s/p Betamethasone x 2. 3. Breech presentation 4. BPP 09/21. US shows TASHIA 0, breech presentation 5. Diet - regular, tolerating. Heplock IV 6. Expectant management, continue to monitor for fever/signs/symptoms of infection. Plan for at 34 weeks. dw Trudy Ko MD R2 Dec 02, 2016 09:26
[2016-12-02] MEDS: MULTIVIT/MIN/PREN/FOL AC/IRON PRENATAL TAB PO SCH (09:31)
[2016-12-02] MEDS: SODIUM CHLORIDE 0.9% FLUSH 10 ML FLUSH IV FLUSH SCH ×2 (09:32→21:00)
[2016-12-02 16:58] LABS: AUTOMATED NEUTROPHIL # 17.4 TH/MM3 (1.8-7.7); BASOPHIL % 0.1 % (0.0-2.0); EOSINOPHIL # 0.1 TH/MM3 (0-0.4); EOSINOPHIL % 0.6 % (0.0-4.0); HEMATOCRIT 37.3 % (35.0-46.0); HEMO FLAGS DIFF FINAL; LYMPH % 15.5 % (9.0-44.0); LYMPHOCYTE # 3.4 TH/MM3 (1.0-4.8); MEAN CELL VOLUME 94.9 FL (80.0-100.0); MEAN CORPUSCULAR HEMOGLOBIN 31.8 PG (27.0-34.0); MEAN CORPUSCULAR HGB CONC 33.5 % (32.0-36.0); MONO % 4.9 % (0.0-8.0); NEUT % 78.9 % (16.0-70.0); PLATELET COUNT 263 TH/MM3 (150-450); RED BLOOD COUNT 3.93 MIL/MM3 (4.00-5.30); RED CELL DISTRIBUTION WIDTH 13.2 % (11.6-17.2)
[2016-12-03] VITALS (63 sets, daily range): BP systolic 121–137; BP diastolic 54–69; PULSE 55–98; RESP 16–18; TEMP 97.7–99
[2016-12-03] MEDS: AMOXICILLIN (TRIHYDRATE) 250 MG CAP PO SCH ×3 (06:07→21:40)
[2016-12-03] MEDS: ERYTHROMYCIN EC 333 MG TABEC PO SCH ×3 (06:07→21:40)
--- NOTE | 2016-12-03 07:31 | PD.OB.ANTE ---
Subjective Diagnosis: (1) premature rupture of membranes (PPROM) with unknownonset of labor (2) with 32 completed weeks gestation Interval History No acute issues overnight, with no reported changes since yesterday. Vitals are stable, patient remains afebrile. She denies any fever, chills, headache, nausea , vomiting, diarrhea, abdominal pain, contractions, vaginal bleeding or discharge. She is feeling the baby moving well. Antepartum ROS: Reports: movement normal, Denies: New complaints, Loss of fluid, Vaginal bleeding, Contractions Objective Vital Signs Vital Signs Date Time Temp Pulse Resp B/P Pulse Ox O2 Delivery O2 Flow Rate FiO2 12/03/16 06:08 98.3 12/02/16 19:23 78 136/65 12/02/16 19:23 16 12/02/16 19:22 98.2 12/02/16 15:00 20 12/02/16 15:00 98.6 12/02/16 14:57 83 132/62 12/02/16 12:00 98.6 18 12/02/16 11:51 81 119/49 12/02/16 11:45 75 12/02/16 11:40 77 12/02/16 11:35 77 12/02/16 11:30 80 12/02/16 11:25 78 12/02/16 11:20 78 12/02/16 11:15 83 12/02/16 11:10 79 12/02/16 11:05 79 12/02/16 11:00 92 12/02/16 10:55 84 12/02/16 10:50 85 12/02/16 10:45 86 12/02/16 10:40 77 12/02/16 10:35 80 12/02/16 10:30 72 12/02/16 10:25 77 12/02/16 10:20 80 12/02/16 10:15 84 12/02/16 10:10 79 12/02/16 10:05 76 12/02/16 10:00 98.2 18 12/02/16 10:00 87 12/02/16 09:55 79 12/02/16 09:50 82 12/02/16 09:45 85 12/02/16 09:40 83 12/02/16 09:35 85 12/02/16 09:33 83 116/61 Lab & Micro Results Test 12/02/16 15:43 White Blood Count 22.0 TH/MM3 Red Blood Count 3.93 MIL/MM3 Hemoglobin 12.5 GM/DL Hematocrit 37.3 % Mean Corpuscular Volume 94.9 FL Mean Corpuscular Hemoglobin 31.8 PG Mean Corpuscular Hemoglobin 33.5 % Concent Red Cell Distribution Width 13.2 % Platelet Count 263 TH/MM3 Mean Platelet Volume 9.2 FL Neutrophils (%) (Auto) 78.9 % Lymphocytes (%) (Auto) 15.5 % Monocytes (%) (Auto) 4.9 % Eosinophils (%) (Auto) 0.6 % Basophils (%) (Auto) 0.1 % Neutrophils # (Auto) 17.4 TH/MM3 Lymphocytes # (Auto) 3.4 TH/MM3 Monocytes # (Auto) 1.1 TH/MM3 Eosinophils # (Auto) 0.1 TH/MM3 Basophils # (Auto) 0.0 TH/MM3 CBC Comment DIFF FINAL Differential Comment Physical Exam GENERAL: Well-nourished, well-developed female in no apparent distress. CARDIOVASCULAR: Regular rate and rhythm without murmurs, gallops, or rubs. RESPIRATORY: Breath sounds equal bilaterally. No accessory muscle use. ABDOMEN/GI: Abdomen soft, non-tender. Fundus: nontender above umbilicus GENITOURINARY: External Genitalia: deferred FHT's: qshift Category: 1 Baseline: 150s Reactive: 170s Variability: mod Decels: absent CTX: mild irritability EXTREMITIES: No cyanosis or edema, non-tender, without signs of DVT. Assessment and Plan Problem List: (1) premature rupture of membranes (PPROM) with unknownonset of labor Status: Acute (2) with 32 completed weeks gestation Status: Acute Assessment and Plan 31 year old at 32-5/7 weeks gestation presenting with PPROM 1. IUP- Category I tracing, reassuring. 2. PPROM- s/p IV ampicillin and erythromycin x 48 hours. Now on amoxicillin 250mg PO Q8H and erythromycin 333mg PO Q8H x 5+ days (both started 11/28/16 at 1721). GBS negative. s/p Betamethasone x 2. 3. Breech presentation 4. BPP 09/21. US shows TASHIA 0, breech presentation 5. Diet - regular, tolerating. Heplock IV 6. Expectant management, continue to monitor for fever/signs/symptoms of infection. 7. Plan for at [address] MD R2 Dec 03, 2016 07:31
[2016-12-03] MEDS: SODIUM CHLORIDE 0.9% FLUSH 10 ML FLUSH IV FLUSH SCH ×2 (09:00→21:00)
[2016-12-03] MEDS: MULTIVIT/MIN/PREN/FOL AC/IRON PRENATAL TAB PO SCH (09:00)
[2016-12-03 13:28] LABS: AUTOMATED NEUTROPHIL # 15.3 TH/MM3 (1.8-7.7); BASOPHIL % 0.2 % (0.0-2.0); EOSINOPHIL # 0.1 TH/MM3 (0-0.4); EOSINOPHIL % 0.6 % (0.0-4.0); HEMATOCRIT 37.9 % (35.0-46.0); HEMO FLAGS DIFF FINAL; LYMPH % 14.7 % (9.0-44.0); LYMPHOCYTE # 2.9 TH/MM3 (1.0-4.8); MEAN CELL VOLUME 94.1 FL (80.0-100.0); MEAN CORPUSCULAR HEMOGLOBIN 31.6 PG (27.0-34.0); MEAN CORPUSCULAR HGB CONC 33.5 % (32.0-36.0); MONO % 6.3 % (0.0-8.0); NEUT % 78.2 % (16.0-70.0); PLATELET COUNT 278 TH/MM3 (150-450); RED BLOOD COUNT 4.03 MIL/MM3 (4.00-5.30); RED CELL DISTRIBUTION WIDTH 12.9 % (11.6-17.2); WHITE BLOOD COUNT 19.6 TH/MM3 (4.0-11.0)
[2016-12-04] VITALS (51 sets, daily range): BP systolic 116–150; BP diastolic 55–66; PULSE 74–105; RESP 16–18; TEMP 97.9–98.5
--- NOTE | 2016-12-04 02:39 | HHI.PR ---
Subjective Remarks Patient resting comfortably no complaints Objective - Vital Signs Date Time Temp Pulse Resp B/P (MAP) Pulse Ox O2 Delivery O2 Flow Rate FiO2 12/03/16 06:08 98.3 12/02/16 19:23 78 136/65 (88) 12/02/16 19:23 16 Result Diagram: 12/03/16 1256 Other Results Category 1 tracing No contractions One episode of variable seen A/P Assessment and Plan No clinical signs of infection Plan Continue present management If Patient develops persistent variable decelerations we'll proceed with C- section Ekaterina Alejandra MD Dec 04, 2016 02:39
[2016-12-04] MEDS: AMOXICILLIN (TRIHYDRATE) 250 MG CAP PO SCH (05:54)
[2016-12-04] MEDS: ERYTHROMYCIN EC 333 MG TABEC PO SCH (05:54)
--- NOTE | 2016-12-04 07:58 | PD.OB.ANTE ---
Subjective Diagnosis: (1) premature rupture of membranes (PPROM) with unknownonset of labor Diagnosis: Principal (2) with 32 completed weeks gestation Interval History No acute issues overnight. Vitals are stable, patient remains afebrile. She denies any contractions or vaginal bleeding. Positive movement. She denies any chest pain, shortness of breath, leg pain, fever, chills, nausea or vomiting. Antepartum ROS: Reports: Loss of fluid, movement normal, Denies: New complaints, Vaginal bleeding, Contractions (Lisa Trujillo MD, R3) Objective Lab & Micro Results Test 12/03/16 12:56 White Blood Count 19.6 TH/MM3 Red Blood Count 4.03 MIL/MM3 Hemoglobin 12.7 GM/DL Hematocrit 37.9 % Mean Corpuscular Volume 94.1 FL Mean Corpuscular Hemoglobin 31.6 PG Mean Corpuscular Hemoglobin Concent 33.5 % Red Cell Distribution Width 12.9 % Platelet Count 278 TH/MM3 Mean Platelet Volume 8.9 FL Neutrophils (%) (Auto) 78.2 % Lymphocytes (%) (Auto) 14.7 % Monocytes (%) (Auto) 6.3 % Eosinophils (%) (Auto) 0.6 % Basophils (%) (Auto) 0.2 % Neutrophils # (Auto) 15.3 TH/MM3 Lymphocytes # (Auto) 2.9 TH/MM3 Monocytes # (Auto) 1.2 TH/MM3 Eosinophils # (Auto) 0.1 TH/MM3 Basophils # (Auto) 0.0 TH/MM3 CBC Comment DIFF FINAL Differential Comment Date/Time Source Procedure Growth Status 11/27/16 09:25 Genital Genital Region Group B Streptococcus Screen - Final NO GROUP B STREP ISOLATED Complete Physical Exam GENERAL: Well-nourished, well-developed patient. CARDIOVASCULAR: Regular rate and rhythm without murmurs, gallops, or rubs. RESPIRATORY: Breath sounds equal bilaterally. No accessory muscle use. ABDOMEN/GI: Abdomen soft, non-tender. Fundus: 32 GENITOURINARY: External Genitalia: intact and normal in appearance Presentation: Breech Membranes: SROM Uterine Contractions: none FHT's: Category: I Baseline: 140 Reactive: + Variability: moderate Decels: none EXTREMITIES: No cyanosis or edema, non-tender, without signs of DVT. (Lisa Trujillo MD, R3) Assessment and Plan Problem List: (1) premature rupture of membranes (PPROM) with unknownonset of labor ICD Codes: O42.919 - premature rupture of membranes, unspecified as to length of time between rupture and onset oflabor, unspecified trimester Status: Acute (2) with 32 completed weeks gestation ICD Codes: Z3A.32 - 32 weeks gestation of Status: Acute Assessment and Plan 31 year old at 32-6/7 weeks gestation with PPROM 1. IUP- Category I tracing, reassuring. 2. PPROM- s/p IV ampicillin and erythromycin x 48 hours. Now on amoxicillin 250mg PO Q8H and erythromycin 333mg PO Q8H x 6 days (both started 11/28/16 at 1721). Will DC antibiotics today. GBS negative. s/p Betamethasone x 2. 3. Breech presentation 4. BPP 09/21. US shows TASHIA 0, breech presentation 5. Leukocytosis trending down on 12/03 to 19.6. Will continue to monitor CBC QOD. 6. Diet - regular, tolerating. Heplock IV 7. Expectant management, continue to monitor for fever/signs/symptoms of infection. 8. Plan for at [address] Gonzales and Dr. Malhotra R1 (Lisa Trujillo MD, R3) Addendum Remarks I rounded on the patient. I rounded with the resident. I reviewed the resident' s assessment and plan of care for this patient. I am in agreement with the plan of care for this patient. (Ekaterina Alejandra MD) Lisa Trujillo MD, R3 Dec 04, 2016 07:58 Ekaterina Alejandra MD Dec 04, 2016 08:48
[2016-12-04] MEDS: SODIUM CHLORIDE 0.9% FLUSH 10 ML FLUSH IV FLUSH SCH (09:00)
[2016-12-04] MEDS: MULTIVIT/MIN/PREN/FOL AC/IRON PRENATAL TAB PO SCH (09:10)
[2016-12-05] VITALS (35 sets, daily range): BP systolic 116–124; BP diastolic 58–60; PULSE 83–93; RESP 16–18; TEMP 97.9–98
[2016-12-05 05:30] LABS: HEMATOCRIT 36.4 % (35.0-46.0); MEAN CELL VOLUME 94.1 FL (80.0-100.0); MEAN CORPUSCULAR HEMOGLOBIN 31.9 PG (27.0-34.0); MEAN CORPUSCULAR HGB CONC 33.9 % (32.0-36.0); PLATELET COUNT 247 TH/MM3 (150-450); RED BLOOD COUNT 3.87 MIL/MM3 (4.00-5.30); RED CELL DISTRIBUTION WIDTH 12.6 % (11.6-17.2); REVIEW FLAG FINAL
--- NOTE | 2016-12-05 07:23 | PD.OB.ANTE ---
Subjective Diagnosis: (1) premature rupture of membranes (PPROM) with unknownonset of labor Diagnosis: Principal (2) with 32 completed weeks gestation Interval History No acute issues overnight. Vitals are stable, patient remains afebrile. She denies any contractions or vaginal bleeding. Positive movement. No chest pain, shortness of breath, fever, chills, nausea, vomiting or leg pain. Antepartum ROS: Reports: Loss of fluid, movement normal, Denies: New complaints, Vaginal bleeding, Contractions Objective Vital Signs Vital Signs Date Time Temp Pulse Resp B/P (MAP) Pulse Ox O2 Delivery O2 Flow Rate FiO2 12/05/16 06:00 16 12/05/16 04:00 18 12/05/16 02:00 18 12/04/16 23:12 98.5 74 18 150/66 (94) 12/04/16 21:45 81 12/04/16 20:55 76 12/04/16 19:30 83 12/04/16 19:30 18 12/04/16 19:25 80 12/04/16 19:20 83 12/04/16 19:15 80 12/04/16 19:10 85 12/04/16 19:05 81 12/04/16 19:00 78 12/04/16 15:53 16 12/04/16 15:53 97.9 12/04/16 15:52 88 116/58 (77) 12/04/16 15:50 90 12/04/16 15:45 86 12/04/16 15:40 87 12/04/16 15:35 84 12/04/16 15:30 88 12/04/16 15:25 89 12/04/16 15:20 86 12/04/16 15:15 82 12/04/16 15:10 89 12/04/16 15:05 82 12/04/16 12:14 80 129/65 (86) 12/04/16 12:10 80 12/04/16 12:05 89 12/04/16 12:00 87 12/04/16 08:35 84 12/04/16 08:32 16 12/04/16 08:32 98.0 12/04/16 08:31 77 126/55 (78) 12/04/16 08:30 75 12/04/16 08:20 105 12/04/16 08:15 92 12/04/16 08:10 83 12/04/16 08:05 84 12/04/16 08:00 88 Lab & Micro Results Test 12/05/16 04:38 White Blood Count 17.0 TH/MM3 Red Blood Count 3.87 MIL/MM3 Hemoglobin 12.3 GM/DL Hematocrit 36.4 % Mean Corpuscular Volume 94.1 FL Mean Corpuscular Hemoglobin 31.9 PG Mean Corpuscular Hemoglobin Concent 33.9 % Red Cell Distribution Width 12.6 % Platelet Count 247 TH/MM3 Mean Platelet Volume 9.0 FL Date/Time Source Procedure Growth Status 11/27/16 09:25 Genital Genital Region Group B Streptococcus Screen - Final NO GROUP B STREP ISOLATED Complete Physical Exam GENERAL: Well-nourished, well-developed patient. CARDIOVASCULAR: Regular rate and rhythm without murmurs, gallops, or rubs. RESPIRATORY: Breath sounds equal bilaterally. No accessory muscle use. ABDOMEN/GI: Abdomen soft, non-tender. Fundus: 33 GENITOURINARY: External Genitalia: intact and normal in appearance Presentation: breech Membranes: SROM Uterine Contractions: none FHT's: Category: I Baseline: 140 Reactive: + Variability: moderate Decels: none EXTREMITIES: No cyanosis or edema, non-tender, without signs of DVT. Assessment and Plan Problem List: (1) premature rupture of membranes (PPROM) with unknownonset of labor ICD Codes: O42.919 - premature rupture of membranes, unspecified as to length of time between rupture and onset oflabor, unspecified trimester Status: Acute (2) with 32 completed weeks gestation ICD Codes: Z3A.32 - 32 weeks gestation of Status: Acute Assessment and Plan 31 year old at 33-0/7 weeks gestation with PPROM 1. IUP- Category I tracing, reassuring. 2. PPROM- s/p IV ampicillin and erythromycin x 48 hours and amoxicillin 250mg PO Q8H and erythromycin 333mg PO Q8H (11/28-12/04). GBS negative. s/p Betamethasone x 2. 3. Breech presentation 4. 11/30 BPP 09/21. US shows TASHIA 0, breech presentation 5. Leukocytosis continues to trend down today from 19.6 to 17.0. Will continue to monitor CBC QOD. 6. Expectant management, continue to monitor for fever/signs/symptoms of infection. 7. Plan for at [address] Simms and Dr. Malhotra R1 Lisa Trujillo MD, R3 Dec 05, 2016 07:23
[2016-12-05] MEDS: MULTIVIT/MIN/PREN/FOL AC/IRON PRENATAL TAB PO SCH (09:29)
[2016-12-05] MEDS: SODIUM CHLORIDE 0.9% FLUSH 10 ML FLUSH IV FLUSH SCH ×2 (09:30→21:00)
[2016-12-06] VITALS (11 sets, daily range): BP systolic 109–122; BP diastolic 45–62; PULSE 80–85; RESP 16–18; TEMP 97.7–98.4
--- NOTE | 2016-12-06 07:46 | PD.OB.ANTE ---
Subjective Diagnosis: (1) premature rupture of membranes (PPROM) with unknownonset of labor Diagnosis: Principal (2) with 32 completed weeks gestation Interval History issues overnight. Vitals are stable, patient remained afebrile. She denies any chest pain, shortness of breath, abdominal pain, pelvic pain, contractions, nausea, or vomiting. She is tolerating by mouth intake, voiding and stooling without difficulty. She had a small amount of vaginal bleeding overnight and a small amount of leaking fluid. Positive movement. Antepartum ROS: Reports: Loss of fluid, Vaginal bleeding (small amount), movement normal, Denies: New complaints, Contractions (Lisa Trujillo MD, R3) Objective Vital Signs Vital Signs Date Time Temp Pulse Resp B/P (MAP) Pulse Ox O2 Delivery O2 Flow Rate FiO2 12/06/16 06:00 18 12/06/16 05:00 18 12/06/16 04:00 18 12/06/16 03:00 18 12/06/16 02:00 18 12/06/16 01:00 18 12/06/16 01:00 97.9 12/06/16 00:00 18 12/05/16 22:04 116/59 (78) 12/05/16 22:04 86 12/05/16 22:04 18 12/05/16 22:03 97.9 12/05/16 21:46 18 12/05/16 21:40 87 12/05/16 21:35 85 12/05/16 21:30 87 12/05/16 21:25 85 12/05/16 21:20 86 12/05/16 21:15 89 12/05/16 21:10 85 12/05/16 21:05 86 12/05/16 21:00 93 12/05/16 19:58 97.9 12/05/16 19:55 83 12/05/16 19:50 84 12/05/16 19:45 84 12/05/16 19:40 85 12/05/16 19:35 84 12/05/16 19:30 91 12/05/16 19:25 88 12/05/16 19:20 88 12/05/16 19:15 84 12/05/16 19:10 90 12/05/16 19:05 87 12/05/16 19:00 92 12/05/16 15:56 84 124/59 (80) 12/05/16 15:56 18 12/05/16 15:56 97.9 12/05/16 10:41 86 121/60 (80) 12/05/16 10:40 98.0 18 12/05/16 08:00 17 12/05/16 07:55 86 12/05/16 07:50 88 12/05/16 07:47 84 123/58 (79) Lab & Micro Results Date/Time Source Procedure Growth Status 11/27/16 09:25 Genital Genital Region Group B Streptococcus Screen - Final NO GROUP B STREP ISOLATED Complete Physical Exam GENERAL: Well-nourished, well-developed patient. CARDIOVASCULAR: Regular rate and rhythm without murmurs, gallops, or rubs. RESPIRATORY: Breath sounds equal bilaterally. No accessory muscle use. ABDOMEN/GI: Abdomen soft, non-tender. Fundus: 33 GENITOURINARY: External Genitalia: intact and normal in appearance Presentation: Breech Membranes: SROM Uterine Contractions: none FHT's: Category: I Baseline: 160 Reactive: + Variability: moderate Decels: none EXTREMITIES: No cyanosis or edema, non-tender, without signs of DVT. (Lisa Trujillo MD, R3) Assessment and Plan Problem List: (1) premature rupture of membranes (PPROM) with unknownonset of labor ICD Codes: O42.919 - premature rupture of membranes, unspecified as to length of time between rupture and onset oflabor, unspecified trimester Status: Acute (2) with 32 completed weeks gestation ICD Codes: Z3A.32 - 32 weeks gestation of Status: Acute Assessment and Plan 31 year old at 33-1/7 weeks gestation with PPROM 1. IUP- Category I tracing, reassuring. 2. PPROM- s/p IV ampicillin and erythromycin x 48 hours and amoxicillin 250mg PO Q8H and erythromycin 333mg PO Q8H (11/28-12/04). GBS negative. s/p Betamethasone x 2. 3. Breech presentation 4. 11/30 and 12/03 BPP 6/8. US shows TASHIA 0, breech presentation 5. Leukocytosis continues to trend down from 19.6 to 17.0. Will continue to monitor CBC QOD. 6. Expectant management, continue to monitor for fever/signs/symptoms of infection. 7. Plan for at [address] Cook (Lisa Trujillo MD, R3) Attestation Patient seen at bedside. Agree with resident's assessment and plan. Plan for delivery at 34 weeks. (Shannon Cook MD) Lisa Trujillo MD, R3 Dec 06, 2016 07:46 Shannon Cook MD Dec 06, 2016 09:23
[2016-12-06] MEDS: MULTIVIT/MIN/PREN/FOL AC/IRON PRENATAL TAB PO SCH (08:59)
[2016-12-06] MEDS: SODIUM CHLORIDE 0.9% FLUSH 10 ML FLUSH IV FLUSH SCH ×2 (09:00→21:36)
[2016-12-07] VITALS (28 sets, daily range): BP systolic 113–128; BP diastolic 58–65; PULSE 84–92; RESP 17–18; TEMP 97.6–98.1
[2016-12-07 06:17] LABS: HEMATOCRIT 36.4 % (35.0-46.0); MEAN CELL VOLUME 94.5 FL (80.0-100.0); MEAN CORPUSCULAR HEMOGLOBIN 31.7 PG (27.0-34.0); MEAN CORPUSCULAR HGB CONC 33.6 % (32.0-36.0); PLATELET COUNT 254 TH/MM3 (150-450); RED BLOOD COUNT 3.86 MIL/MM3 (4.00-5.30); RED CELL DISTRIBUTION WIDTH 12.9 % (11.6-17.2); REVIEW FLAG FINAL; WHITE BLOOD COUNT 17.3 TH/MM3 (4.0-11.0)
--- NOTE | 2016-12-07 08:00 | PD.OB.ANTE ---
Subjective Diagnosis: (1) premature rupture of membranes (PPROM) with unknownonset of labor Diagnosis: Principal (2) with 32 completed weeks gestation Interval History Acute issues overnight. Vitals are stable, patient remains afebrile. She denies any chest pain, shortness of breath, or leg pain. Positive movement. No vaginal bleeding. No contractions. Antepartum ROS: Reports: Loss of fluid, movement normal, Denies: New complaints, Vaginal bleeding, Contractions Objective Vital Signs Vital Signs Date Time Temp Pulse Resp B/P (MAP) Pulse Ox O2 Delivery O2 Flow Rate FiO2 12/07/16 01:00 97.6 12/06/16 19:27 83 122/62 (82) 12/06/16 19:26 16 12/06/16 19:26 98.4 12/06/16 14:29 80 16 111/45 (67) 12/06/16 14:29 97.7 Lab & Micro Results Test 12/07/16 06:01 White Blood Count 17.3 TH/MM3 Red Blood Count 3.86 MIL/MM3 Hemoglobin 12.2 GM/DL Hematocrit 36.4 % Mean Corpuscular Volume 94.5 FL Mean Corpuscular Hemoglobin 31.7 PG Mean Corpuscular Hemoglobin Concent 33.6 % Red Cell Distribution Width 12.9 % Platelet Count 254 TH/MM3 Mean Platelet Volume 8.4 FL Date/Time Source Procedure Growth Status 11/27/16 09:25 Genital Genital Region Group B Streptococcus Screen - Final NO GROUP B STREP ISOLATED Complete Physical Exam GENERAL: Well-nourished, well-developed patient. CARDIOVASCULAR: Regular rate and rhythm without murmurs, gallops, or rubs. RESPIRATORY: Breath sounds equal bilaterally. No accessory muscle use. ABDOMEN/GI: Abdomen soft, non-tender. Fundus: 33 GENITOURINARY: External Genitalia: intact and normal in appearance Presentation: Breech Membranes: SROM Uterine Contractions: none FHT's: Category: I Baseline: 155 Reactive: + Variability: moderate Decels: none EXTREMITIES: No cyanosis or edema, non-tender, without signs of DVT. Assessment and Plan Problem List: (1) premature rupture of membranes (PPROM) with unknownonset of labor ICD Codes: O42.919 - premature rupture of membranes, unspecified as to length of time between rupture and onset oflabor, unspecified trimester Status: Acute (2) with 32 completed weeks gestation ICD Codes: Z3A.32 - 32 weeks gestation of Status: Acute Assessment and Plan 31 year old at 33-2/7 weeks gestation with PPROM 1. IUP- Category I tracing, reassuring. 2. PPROM- s/p IV ampicillin and erythromycin x 48 hours and amoxicillin 250mg PO Q8H and erythromycin 333mg PO Q8H (11/28-12/04). GBS negative. s/p Betamethasone x 2. 3. Breech presentation 4. 11/30 and 12/03 BPP 09/21. US shows TASHIA 0, breech presentation 5. Leukocytosis stable, now at 17.3 up from 17.0. Will continue to monitor CBC QOD. 6. Expectant management, continue to monitor for fever/signs/symptoms of infection. 7. Plan for at [address] Beavers and Dr. Malhotra R1 Lisa Trujillo MD, R3 Dec 07, 2016 08:00
[2016-12-07] MEDS: SODIUM CHLORIDE 0.9% FLUSH 10 ML FLUSH IV FLUSH SCH ×2 (08:49→21:40)
[2016-12-07] MEDS: MULTIVIT/MIN/PREN/FOL AC/IRON PRENATAL TAB PO SCH (08:49)
[2016-12-08] VITALS (23 sets, daily range): BP systolic 117–130; BP diastolic 52–64; PULSE 80–92; RESP 17–18; TEMP 97.8–98.2
--- NOTE | 2016-12-08 08:31 | PD.OB.ANTE ---
Subjective Diagnosis: (1) premature rupture of membranes (PPROM) with unknownonset of labor Diagnosis: Principal (2) with 32 completed weeks gestation Interval History No acute issues overnight. Vitals are stable, patient remains afebrile. She endorses positive movement, no vaginal bleeding or discharge. No contractions. She denies any fever, chills, nausea, leg pain, chest pain, or shortness of breath. Antepartum ROS: Reports: Loss of fluid, movement normal, Denies: New complaints, Vaginal bleeding, Contractions Objective Vital Signs Vital Signs Date Time Temp Pulse Resp B/P (MAP) Pulse Ox O2 Delivery O2 Flow Rate FiO2 12/07/16 19:48 18 12/07/16 19:47 87 117/59 (78) 12/07/16 19:46 97.6 12/07/16 17:29 18 12/07/16 17:26 84 122/58 (79) 12/07/16 13:45 87 12/07/16 13:40 90 12/07/16 13:35 91 12/07/16 13:30 92 12/07/16 13:25 88 12/07/16 13:20 85 12/07/16 13:15 84 12/07/16 13:10 86 12/07/16 13:05 87 12/07/16 13:00 91 12/07/16 10:59 97.6 17 12/07/16 10:58 86 113/59 (77) 12/07/16 08:45 87 12/07/16 08:40 91 12/07/16 08:35 91 12/07/16 08:30 92 Lab & Micro Results Date/Time Source Procedure Growth Status 11/27/16 09:25 Genital Genital Region Group B Streptococcus Screen - Final NO GROUP B STREP ISOLATED Complete Physical Exam GENERAL: Well-nourished, well-developed patient. CARDIOVASCULAR: Regular rate and rhythm without murmurs, gallops, or rubs. RESPIRATORY: Breath sounds equal bilaterally. No accessory muscle use. ABDOMEN/GI: Abdomen soft, non-tender. Fundus: 33 GENITOURINARY: External Genitalia: intact and normal in appearance Presentation: Breech Membranes: SROM Uterine Contractions: none FHT's: Category: I Baseline: 140 Reactive: + Variability: moderate Decels: none EXTREMITIES: No cyanosis or edema, non-tender, without signs of DVT. Assessment and Plan Problem List: (1) premature rupture of membranes (PPROM) with unknownonset of labor ICD Codes: O42.919 - premature rupture of membranes, unspecified as to length of time between rupture and onset oflabor, unspecified trimester Status: Acute (2) with 32 completed weeks gestation ICD Codes: Z3A.32 - 32 weeks gestation of Status: Acute Assessment and Plan 31 year old at 33-3/7 weeks gestation with PPROM 1. IUP- Category I tracing, reassuring. 2. PPROM- s/p IV ampicillin and erythromycin x 48 hours and amoxicillin 250mg PO Q8H and erythromycin 333mg PO Q8H (11/28-12/04). GBS negative. s/p Betamethasone x 2. Daily NST. Weekly BPP (next on Sunday, 12/11). 3. Breech presentation 4. 11/30 and 12/03 BPP 6/8. US shows TASHIA 0, breech presentation 5. Leukocytosis stable at 17.3 Will continue to monitor CBC QOD. 6. Expectant management, continue to monitor for fever/signs/symptoms of infection. 7. Plan for at [address] Lombardi and Dr. Malhotra R1 Lisa Trujillo MD, R3 Dec 08, 2016 08:31
[2016-12-08] MEDS: SODIUM CHLORIDE 0.9% FLUSH 10 ML FLUSH IV FLUSH SCH ×2 (08:37→21:00)
[2016-12-08] MEDS: MULTIVIT/MIN/PREN/FOL AC/IRON PRENATAL TAB PO SCH (08:37)
[2016-12-09] VITALS (16 sets, daily range): BP systolic 124–137; BP diastolic 59–69; PULSE 83–101; RESP 16–18; TEMP 97.8–98.2
[2016-12-09 03:59] LABS: HEMATOCRIT 36.2 % (35.0-46.0); MEAN CELL VOLUME 95.2 FL (80.0-100.0); MEAN CORPUSCULAR HEMOGLOBIN 31.5 PG (27.0-34.0); MEAN CORPUSCULAR HGB CONC 33.1 % (32.0-36.0); PLATELET COUNT 264 TH/MM3 (150-450); REVIEW FLAG FINAL; WHITE BLOOD COUNT 15.8 TH/MM3 (4.0-11.0)
[2016-12-09] MEDS: MULTIVIT/MIN/PREN/FOL AC/IRON PRENATAL TAB PO SCH (08:51)
[2016-12-09] MEDS: SODIUM CHLORIDE 0.9% FLUSH 10 ML FLUSH IV FLUSH SCH ×2 (09:00→21:00)
--- NOTE | 2016-12-09 09:08 | PD.OB.ANTE ---
Subjective Diagnosis: (1) premature rupture of membranes (PPROM) with unknownonset of labor Diagnosis: Principal (2) with 32 completed weeks gestation Interval History No acute issues overnight. Vitals are stable, patient remains afebrile. She denies any contractions, vaginal bleeding, chest pain, shortness of breath, fever, chills, leg pain, or malaise. She is looking forward to her scheduled delivery in 3 days. Antepartum ROS: Reports: Loss of fluid, movement normal, Denies: New complaints, Vaginal bleeding, Contractions (Lisa Trujillo MD, R3) Objective Vital Signs Vital Signs Date Time Temp Pulse Resp B/P (MAP) Pulse Ox O2 Delivery O2 Flow Rate FiO2 12/09/16 08:55 97.9 16 12/09/16 08:50 84 124/69 (87) 12/09/16 00:00 97.8 16 12/08/16 23:10 82 122/55 (77) 12/08/16 21:05 86 12/08/16 21:00 90 12/08/16 20:55 88 12/08/16 20:50 89 12/08/16 20:45 87 12/08/16 20:40 88 12/08/16 20:35 87 12/08/16 20:32 18 12/08/16 20:31 97.8 89 117/57 (77) 12/08/16 20:30 82 12/08/16 17:26 80 118/52 (74) 12/08/16 17:00 97.8 18 12/08/16 14:58 18 12/08/16 14:00 98.1 12/08/16 12:00 17 12/08/16 11:02 88 130/64 (86) 12/08/16 11:00 98.2 12/08/16 10:00 17 Lab & Micro Results Test 12/09/16 03:07 White Blood Count 15.8 TH/MM3 Red Blood Count 3.80 MIL/MM3 Hemoglobin 12.0 GM/DL Hematocrit 36.2 % Mean Corpuscular Volume 95.2 FL Mean Corpuscular Hemoglobin 31.5 PG Mean Corpuscular Hemoglobin Concent 33.1 % Red Cell Distribution Width 13.0 % Platelet Count 264 TH/MM3 Mean Platelet Volume 8.8 FL Date/Time Source Procedure Growth Status 11/27/16 09:25 Genital Genital Region Group B Streptococcus Screen - Final NO GROUP B STREP ISOLATED Complete Physical Exam GENERAL: Well-nourished, well-developed patient. CARDIOVASCULAR: Regular rate and rhythm without murmurs, gallops, or rubs. RESPIRATORY: Breath sounds equal bilaterally. No accessory muscle use. ABDOMEN/GI: Abdomen soft, non-tender. Fundus: 33 GENITOURINARY: External Genitalia: intact and normal in appearance Presentation: breech Membranes: SROM Uterine Contractions: none FHT's: Category: I Baseline: 145 Reactive: + Variability: moderate Decels: none EXTREMITIES: No cyanosis or edema, non-tender, without signs of DVT. (Lisa Trujillo MD, R3) Assessment and Plan Problem List: (1) premature rupture of membranes (PPROM) with unknownonset of labor ICD Codes: O42.919 - premature rupture of membranes, unspecified as to length of time between rupture and onset oflabor, unspecified trimester Status: Acute (2) 33 weeks gestation of ICD Codes: Z3A.33 - 33 weeks gestation of Assessment and Plan 31 year old at 33-4/7 weeks gestation with PPROM 1. IUP- Category I tracing, reassuring. 2. PPROM- s/p IV ampicillin and erythromycin x 48 hours and amoxicillin 250mg PO Q8H and erythromycin 333mg PO Q8H (11/28-12/04). GBS negative. s/p Betamethasone x 2. Daily NST. Weekly BPP (next on Sunday, 12/11). 3. Breech presentation 4. 11/30 and 12/03 BPP 09/21. US shows TASHIA 0, breech presentation 5. Leukocytosis trending down from 17.3 to 15.8 today. Will continue to monitor CBC QOD. 6. Expectant management, continue to monitor for fever/signs/symptoms of infection. 7. Plan for at 34 weeks. praveena Lozano (Lisa Trujillo MD, R3) Assessment and Plan Patient seen and evaluated with resident under direct supervision, agree with assessment and plan. (Americo Lozano MD) iLsa Trujillo MD, R3 Dec 09, 2016 09:08 Americo Lozano MD Dec 10, 2016 17:07
[2016-12-10] VITALS (24 sets, daily range): BP systolic 113–153; BP diastolic 57–76; PULSE 81–92; RESP 16–18; TEMP 97.8–98.4
[2016-12-10] MEDS: SODIUM CHLORIDE 0.9% FLUSH 10 ML FLUSH IV FLUSH SCH (08:58)
[2016-12-10] MEDS: MULTIVIT/MIN/PREN/FOL AC/IRON PRENATAL TAB PO SCH (08:58)
--- NOTE | 2016-12-10 09:11 | PD.OB.ANTE ---
Subjective Diagnosis: (1) premature rupture of membranes (PPROM) with unknownonset of labor Diagnosis: Principal (2) 33 weeks gestation of Diagnosis: Principal Interval History No acute events overnight. Patient remains afebrile, vital signs are stable. She denies any contractions. Endorses +FM. Denies VB. She does report a very small amount of fluid loss last night and is unsure if this may have been urine. She states this occurred only once and was very minimal discharge. Denies discharge since. Denies dysuria. She denies fevers, chills, chest pain, shortness of breath, pain or swelling of either lower extremity. Ambulating without issues. Antepartum ROS: Reports: Loss of fluid, movement normal, Denies: New complaints, Vaginal bleeding, Contractions (Kyrie Werner MD R2) Antepartum ROS: Reports: Loss of fluid (scant), movement normal, Denies: New complaints, Vaginal bleeding, Contractions (Marge Hines MD) Objective Vital Signs Vital Signs Date Time Temp Pulse Resp B/P (MAP) Pulse Ox O2 Delivery O2 Flow Rate FiO2 12/10/16 07:49 84 113/64 (80) 12/10/16 07:49 97.9 16 12/10/16 06:19 18 12/10/16 06:00 18 12/10/16 05:00 18 12/10/16 03:47 18 12/10/16 03:00 18 12/10/16 02:00 18 12/10/16 01:00 18 12/10/16 00:00 18 12/09/16 23:00 18 12/09/16 22:00 18 12/09/16 19:51 98.1 18 12/09/16 19:48 92 132/66 (88) 12/09/16 16:03 98.2 12/09/16 16:02 18 12/09/16 16:01 83 134/60 (84) 12/09/16 12:28 18 12/09/16 12:25 93 12/09/16 12:20 98 12/09/16 12:15 96 12/09/16 12:10 101 12/09/16 12:03 98 137/59 (85) Lab & Micro Results Date/Time Source Procedure Growth Status 11/27/16 09:25 Genital Genital Region Group B Streptococcus Screen - Final NO GROUP B STREP ISOLATED Complete Physical Exam GENERAL: Well-nourished, well-developed patient. CARDIOVASCULAR: Regular rate and rhythm without murmurs, gallops, or rubs. RESPIRATORY: Breath sounds equal bilaterally. No accessory muscle use. ABDOMEN/GI: Abdomen soft, non-tender. Gravid to about 33 weeks gestation. GENITOURINARY: External Genitalia: [-] Presentation: breech Membranes: SROM Uterine Contractions: none on tocometer FHT's: Category: I Baseline: 150s Reactive: yes Variability: mod Decels: none EXTREMITIES: No cyanosis or edema, non-tender, without signs of DVT. (Kyrie Werner MD R2) Physical Exam ABD: soft, NT NST: CAT I TOCO: No UC (Marge Hines MD) Assessment and Plan Problem List: (1) premature rupture of membranes (PPROM) with unknownonset of labor ICD Codes: O42.919 - premature rupture of membranes, unspecified as to length of time between rupture and onset oflabor, unspecified trimester Status: Acute (2) 33 weeks gestation of ICD Codes: Z3A.33 - 33 weeks gestation of Assessment and Plan 31 year old at 33-5/7 weeks gestation with PPROM 1. IUP- Category I tracing, reassuring. 2. PPROM- s/p IV ampicillin and erythromycin x 48 hours and amoxicillin 250mg PO Q8H and erythromycin 333mg PO Q8H (11/28-12/04). GBS negative. s/p Betamethasone x 2. Daily NST. Weekly BPP (next on Sunday, 12/11). 3. Breech presentation 4. 11/30 and 12/03 BPP 09/21. US shows TASHIA 0, breech presentation 5. Leukocytosis had been trending down from 17.3 to 15.8 yesterday. Will continue to monitor CBC QOD. 6. Expectant management, continue to monitor for fever/signs/symptoms of infection. 7. Plan for at 34 weeks. (Kyrie Werner MD R2) Assessment and Plan 33w5d with PPROM Doing well. s/p Bmeth and antibiotic course Scant LOF, no VB or contractions. No s/s of infection Breech lie with closed cervix Repeat US and delivery @ 34 weeks Patient seen and examined, D/w Dr. Werner (Marge Hines MD) Kyrie Werner MD R2 Dec 10, 2016 09:11 Marge Hines MD Dec 10, 2016 09:39
[2016-12-11] VITALS (24 sets, daily range): BP systolic 111–131; BP diastolic 53–61; PULSE 80–92; RESP 16–18; TEMP 97.9–98.2
[2016-12-11 05:46] LABS: HEMATOCRIT 36.4 % (35.0-46.0); MEAN CORPUSCULAR HEMOGLOBIN 31.6 PG (27.0-34.0); MEAN CORPUSCULAR HGB CONC 33.6 % (32.0-36.0); PLATELET COUNT 251 TH/MM3 (150-450); RED BLOOD COUNT 3.88 MIL/MM3 (4.00-5.30); RED CELL DISTRIBUTION WIDTH 12.8 % (11.6-17.2); REVIEW FLAG FINAL; WHITE BLOOD COUNT 16.3 TH/MM3 (4.0-11.0)
--- NOTE | 2016-12-11 07:22 | PD.OB.ANTE ---
Subjective Diagnosis: (1) premature rupture of membranes (PPROM) with unknownonset of labor Diagnosis: Principal (2) 33 weeks gestation of Diagnosis: Principal Interval History No acute issues overnight. Vitals are stable, patient remains afebrile. She denies any fever, chills, chest pain, shortness of breath, or leg pain. She is feeling the baby moving and continues to have leaking fluid. She denies any vaginal bleeding or contractions. Antepartum ROS: Reports: Loss of fluid, movement normal, Denies: New complaints, Vaginal bleeding, Contractions (Lisa Trujillo MD, R3) Objective Vital Signs Vital Signs Date Time Temp Pulse Resp B/P (MAP) Pulse Ox O2 Delivery O2 Flow Rate FiO2 12/10/16 21:00 97.8 12/10/16 20:55 87 12/10/16 20:50 83 12/10/16 20:45 88 12/10/16 20:40 88 12/10/16 20:35 85 12/10/16 20:30 81 12/10/16 20:25 83 12/10/16 20:23 86 16 131/63 (85) 12/10/16 20:20 82 12/10/16 19:17 18 12/10/16 19:17 97.9 12/10/16 19:15 85 153/76 (101) 12/10/16 15:46 97.8 18 12/10/16 15:46 85 124/63 (83) 12/10/16 11:16 92 117/57 (77) 12/10/16 11:15 98.4 16 12/10/16 11:15 17 12/10/16 07:49 84 113/64 (80) 12/10/16 07:49 97.9 16 Lab & Micro Results Test 12/11/16 04:50 White Blood Count 16.3 TH/MM3 Red Blood Count 3.88 MIL/MM3 Hemoglobin 12.2 GM/DL Hematocrit 36.4 % Mean Corpuscular Volume 94.0 FL Mean Corpuscular Hemoglobin 31.6 PG Mean Corpuscular Hemoglobin Concent 33.6 % Red Cell Distribution Width 12.8 % Platelet Count 251 TH/MM3 Mean Platelet Volume 9.0 FL Date/Time Source Procedure Growth Status 11/27/16 09:25 Genital Genital Region Group B Streptococcus Screen - Final NO GROUP B STREP ISOLATED Complete Physical Exam GENERAL: Well-nourished, well-developed patient. CARDIOVASCULAR: Regular rate and rhythm without murmurs, gallops, or rubs. RESPIRATORY: Breath sounds equal bilaterally. No accessory muscle use. ABDOMEN/GI: Abdomen soft, non-tender. Fundus: 33 GENITOURINARY: External Genitalia: intact and normal in appearance Presentation: Breech Membranes: SROM Uterine Contractions: none FHT's: Category: I Baseline: 145 Reactive: + Variability: moderate Decels: none EXTREMITIES: No cyanosis or edema, non-tender, without signs of DVT. (Lisa Trujillo MD, R3) Assessment and Plan Problem List: (1) premature rupture of membranes (PPROM) with unknownonset of labor ICD Codes: O42.919 - premature rupture of membranes, unspecified as to length of time between rupture and onset oflabor, unspecified trimester Status: Acute (2) 33 weeks gestation of ICD Codes: Z3A.33 - 33 weeks gestation of Assessment and Plan 31 year old at 33-6/7 weeks gestation with PPROM 1. IUP- Category I tracing, reassuring. 2. PPROM- s/p IV ampicillin and erythromycin x 48 hours and amoxicillin 250mg PO Q8H and erythromycin 333mg PO Q8H (11/28-12/04). GBS negative. s/p Betamethasone x 2. Daily NST. Weekly BPP today. 3. Breech presentation 4. 11/30 and 12/03 BPP 6/8. US shows TASHIA 0, breech presentation 5. Leukocytosis stable at 16.3 today. 6. Expectant management, continue to monitor for fever/signs/symptoms of infection. 7. Plan for at 34 weeks (12/12). dw Dr. Lozano and Dr. Malhotra R1 (Lisa Trujillo MD, R3) Assessment and Plan Patient seen and evaluated with resident under direct supervision, agree with assessment and plan. (Americo Lozano MD) Lisa Trujillo MD, R3 Dec 11, 2016 07:22 Americo Lozano MD Dec 11, 2016 08:58
[2016-12-11] MEDS: SODIUM CHLORIDE 0.9% FLUSH 10 ML FLUSH IV FLUSH SCH ×2 (09:00→09:05)
[2016-12-11] MEDS: MULTIVIT/MIN/PREN/FOL AC/IRON PRENATAL TAB PO SCH (09:05)
[2016-12-11] MEDS: ZOLPIDEM TARTRATE 5 MG TAB PO PRN (22:35)
[2016-12-12] VITALS (19 sets, daily range): BP systolic 95–139; BP diastolic 54–88; PULSE 72–98; RESP 11–20; TEMP 98.3–99.7; O2SAT 98–100
--- NOTE | 2016-12-12 06:26 | PD.OB.ANTE ---
Subjective Diagnosis: (1) premature rupture of membranes (PPROM) with unknownonset of labor Diagnosis: Principal (2) 33 weeks gestation of Diagnosis: Principal Interval History No acute issues overnight. Vitals are stable, patient remains afebrile. She denies any vaginal bleeding or contractions. She continues to have leaking fluid. Positive movement. She feels ready for her today. Antepartum ROS: Reports: Loss of fluid, movement normal, Denies: New complaints, Vaginal bleeding, Contractions Objective Vital Signs Vital Signs Date Time Temp Pulse Resp B/P (MAP) Pulse Ox O2 Delivery O2 Flow Rate FiO2 12/11/16 20:40 86 12/11/16 20:35 89 12/11/16 20:30 88 12/11/16 20:25 91 12/11/16 20:20 91 12/11/16 20:15 90 12/11/16 20:10 92 12/11/16 20:06 98.0 12/11/16 20:06 89 18 111/61 (78) 12/11/16 16:08 80 124/53 (76) 12/11/16 16:07 97.9 18 12/11/16 11:50 16 12/11/16 11:49 81 126/58 (80) 12/11/16 11:45 83 12/11/16 11:40 81 12/11/16 11:35 81 12/11/16 11:30 80 12/11/16 11:25 84 12/11/16 11:20 88 12/11/16 11:15 92 12/11/16 11:10 85 12/11/16 11:05 84 12/11/16 11:00 85 12/11/16 08:03 89 131/61 (84) 12/11/16 08:02 98.2 16 Lab & Micro Results Date/Time Source Procedure Growth Status 11/27/16 09:25 Genital Genital Region Group B Streptococcus Screen - Final NO GROUP B STREP ISOLATED Complete Physical Exam GENERAL: Well-nourished, well-developed patient. CARDIOVASCULAR: Regular rate and rhythm without murmurs, gallops, or rubs. RESPIRATORY: Breath sounds equal bilaterally. No accessory muscle use. ABDOMEN/GI: Abdomen soft, non-tender. Fundus: 34 GENITOURINARY: External Genitalia: intact and normal in appearance Presentation: Breech Membranes: SROM Uterine Contractions: none FHT's: Category: 1 Baseline: 140 Reactive: + Variability: moderate Decels: none EXTREMITIES: No cyanosis or edema, non-tender, without signs of DVT. Assessment and Plan Problem List: (1) premature rupture of membranes (PPROM) with unknownonset of labor ICD Codes: O42.919 - premature rupture of membranes, unspecified as to length of time between rupture and onset oflabor, unspecified trimester Status: Acute (2) 33 weeks gestation of ICD Codes: Z3A.33 - 33 weeks gestation of Assessment and Plan 31 year old at 34-0/7 weeks gestation with PPROM 1. IUP- Category I tracing, reassuring. 2. PPROM- s/p IV ampicillin and erythromycin x 48 hours and amoxicillin 250mg PO Q8H and erythromycin 333mg PO Q8H (11/28-12/04). GBS negative. s/p Betamethasone x 2. Daily NST. 3. Breech presentation 4. 11/30 and 12/03 BPP 6/8. US shows TASHIA 0, breech presentation 5. Leukocytosis stable at 16.3. Will order pre-op labs today. 6. Expectant management, continue to monitor for fever/signs/symptoms of infection. 7. Plan for today. dw Dr. Chauhan and Lisa Kenyon MD, R3 Dec 12, 2016 06:26
[2016-12-12] MEDS ORDERED: LACTATED RINGER'S 1000 ML INJ 1,000 ML IV ONE (06:27)
[2016-12-12] MEDS ORDERED: LACTATED RINGER'S 1000 ML INJ 1,000 ML IV SCH ×2 (06:57→17:50)
[2016-12-12] MEDS ORDERED: ceFAZolin 2 GM PREMIX 50 ML IV SCH (07:30)
[2016-12-12] MEDS ORDERED: CITRIC ACID-SODIUM CITRATE LIQ 30 ML UDC PO SCH (08:00)
[2016-12-12 08:15] LABS: AUTOMATED NEUTROPHIL # 10.7 TH/MM3 (1.8-7.7); BASOPHIL % 0.3 % (0.0-2.0); EOSINOPHIL # 0.1 TH/MM3 (0-0.4); EOSINOPHIL % 0.8 % (0.0-4.0); HEMATOCRIT 39.7 % (35.0-46.0); HEMO FLAGS DIFF FINAL; LYMPH % 17.4 % (9.0-44.0); LYMPHOCYTE # 2.4 TH/MM3 (1.0-4.8); MEAN CELL VOLUME 93.9 FL (80.0-100.0); MEAN CORPUSCULAR HEMOGLOBIN 30.7 PG (27.0-34.0); MEAN CORPUSCULAR HGB CONC 32.6 % (32.0-36.0); MONO % 5.4 % (0.0-8.0); NEUT % 76.1 % (16.0-70.0); PLATELET COUNT 265 TH/MM3 (150-450); RED BLOOD COUNT 4.22 MIL/MM3 (4.00-5.30); RED CELL DISTRIBUTION WIDTH 13.1 % (11.6-17.2)
[2016-12-12 12:45] LABS: BLOOD GAS BASE EXCESS 1.2 mmol/L (-2-2); BLOOD GAS O2 HGB SATURATION 15 % (90-100); CORD BLOOD GAS HCO3 27 mmol/L (21-29); CORD BLOOD GAS PCO2 59 mmHG (34-78); CORD BLOOD GAS PH 7.29 (7.14-7.42); CORD BLOOD GAS PO2 13 mmHG (3.0-40.0)
[2016-12-12 12:46] LABS: DRAW SITE CORD BLOOD; STAT NO
--- NOTE | 2016-12-12 12:59 | PD.OB.DELI ---
Procedure Note Section Procedure Pre Op Diagnosis: (1) 34 weeks gestation of (2) premature rupture of membranes (PPROM) with unknownonset of labor Post Op Diagnosis: (1) premature rupture of membranes (PPROM) with unknownonset of labor (2) 34 weeks gestation of Performed by Rowena Trujillo Procedure: Primary Low Transverse Sec Indication for delivery: malposition (Breech Presentation) Previous condition: None Informed consent obtained: For anesthesia, For procedure Confirmed correct: Patient, Procedure, Site, Time-out taken Anesthesia: Other (General) Medication prior to procedure: As documented in eMAR Monitoring during procedure: Blood pressure monitoring, front desk monitor, Pulse oximetry Urinary catheter: Inserted using sterile technique, ml urine output (200cc) Sterile preparation: Duraprep Position: Supine with wedge to left side Operative Features Skin Incision: Pfannenstiel Uterine Incision: Low transverse w/knife / scissors Membranes Ruptured: Artificially Presentation: Breech (footling breech) Delivery date: Dec 12, 2016 Delivery time: 12:00 Delivery of : Uneventful : Female One Minute : 4 Five Minute : 9 Weight: 1940g Status of : Viable (tactile stimulation, suction bulb, CPAP for 3.5 minutes) Placenta delivered: Intact, Sent to pathology (for PPROM) Medications: Antibiotics, Oxytocin Estimated blood loss: 750ml Procedure tolerated: Well Maternal Condition: Stable Condition: Stable Procedure in detail See dictated note. Lias Trujillo MD, R3 Dec 12, 2016 12:59
[2016-12-12] MEDS ORDERED: ONDANSETRON HCL 4 MG/2 ML VIAL IV PUSH PRN (13:00)
[2016-12-12] MEDS ORDERED: KETOROLAC TROMETHAMINE 60 MG/2 ML (IM) VIAL IM PRN ×2 (13:00)
[2016-12-12] MEDS ORDERED: ACETAMINOPHEN 325 MG TAB PO PRN (13:00)
[2016-12-12] MEDS ORDERED: SODIUM CHLORIDE 0.9% FLUSH 10 ML FLUSH IV FLUSH PRN (13:00)
[2016-12-12] MEDS ORDERED: oxyCODONE/ACETAMINOPHEN 5 MG/325 MG TAB PO PRN (13:00)
[2016-12-12] MEDS ORDERED: SIMETHICONE 80 MG CHEWABLE TAB PO PRN (13:00)
[2016-12-12] MEDS ORDERED: ZOLPIDEM TARTRATE 5 MG TAB PO PRN (13:00)
[2016-12-12] MEDS ORDERED: OXYTOCIN 30 UNITS-500ML PREMIX 500 ML IV ONE (13:00)
[2016-12-12] MEDS ORDERED: diphenhydrAMINE HCL 50 MG/ML VIAL IV PRN (13:15)
[2016-12-12] MEDS ORDERED: NALOXONE HCL 0.4 MG/ML AMP IV PRN (13:15)
[2016-12-12] MEDS ORDERED: diphenhydrAMINE HCL 25 MG CAP PO PRN (13:15)
[2016-12-12] MEDS: MORPHINE SULFATE 30 MG/30 ML PCA IV SCH ×3 (13:18→23:13)
[2016-12-12] MEDS ORDERED: ONDANSETRON 40 MG/20 ML VIAL IV ONE (13:48)
[2016-12-12] MEDS ORDERED: PROPOFOL 200 MG/20 ML AMP IV PUSH ONE (13:48)
[2016-12-12] MEDS ORDERED: LACTATED RINGER'S 1,000 ML BAG IV ONE (13:48)
[2016-12-12] MEDS ORDERED: fentaNYL CITRATE 250 MCG/5 ML AMP IV ONE (13:48)
[2016-12-12] MEDS ORDERED: PCA - TOTAL MG MORPHINE DELIVERED PER SHIFT SCH (14:00)
[2016-12-12] MEDS ORDERED: SODIUM CHLORIDE 0.9% FLUSH 10 ML FLUSH IV FLUSH SCH (21:00)
[2016-12-12] MEDS ORDERED: OXYTOCIN 30 UNITS-500ML PREMIX 500 ML IV PRN (23:00)
[2016-12-13 04:07] VITALS: BP 96/56; PULSE 85; RESP 18; TEMP 98.4
--- NOTE | 2016-12-13 06:45 | HHI.OB ---
Subjective Remarks POD day # 1. No acute issues overnight, vitals are stable, patient remains afebrile. Incision not draining. Decreasing lochia and pain. Patient is ambulating without difficulty and voiding independently. She is feeding the baby via breast/formula. She denies any nausea or vomiting and has a good appetite. Positive flatus/bowel movement. She denies any calf pain, chest pain , or shortness of breath. She is bonding well with . Objective Vitals/I&O Vital Signs Date Time Temp Pulse Resp B/P (MAP) Pulse Ox O2 Delivery O2 Flow Rate FiO2 12/13/16 04:07 98.4 85 18 96/56 (69) 12/12/16 23:40 95/54 (68) 12/12/16 23:40 98.5 82 16 12/12/16 23:13 18 12/12/16 22:00 18 12/12/16 19:39 98.6 87 16 116/72 (87) 12/12/16 17:20 17 12/12/16 17:00 16 12/12/16 15:15 84 16 12/12/16 15:15 120/76 (91) 12/12/16 15:15 98.6 100 12/12/16 14:00 77 99 12/12/16 14:00 139/88 (105) 12/12/16 13:54 98.3 18 12/12/16 13:45 100 12/12/16 13:45 78 20 133/82 (99) 12/12/16 13:40 18 12/12/16 13:30 73 19 136/77 (96) 100 12/12/16 13:18 19 12/12/16 13:15 72 17 137/73 (94) 100 12/12/16 13:00 99.7 73 11 133/64 (87) 98 12/12/16 13:00 12 12/12/16 09:10 97 12/12/16 09:00 16 12/12/16 09:00 91 12/12/16 08:55 98 12/12/16 08:50 96 12/12/16 08:45 92 12/12/16 08:43 88 128/62 (84) 12/12/16 08:00 17 Result Diagram: 12/12/16 0730 Objective Remarks GENERAL: Well-nourished, well-developed patient. CARDIOVASCULAR: Regular rate and rhythm without murmurs, gallops, or rubs. RESPIRATORY: Breath sounds equal bilaterally. No accessory muscle use. ABDOMEN/GI: Abdomen soft, non-tender, bowel sounds present. Incision: Clean, dry and intact. Fundus: Firm, non-tender at umbilicus. GENITOURINARY: Light to moderate bleeding. EXTREMITIES: No cyanosis or edema, non-tender, without signs of DVT. Medications and IVs Current Medications Medications (Trade) Dose Ordered Sig/Juan R Route Start Time Stop Time Status Last Admin Cefazolin Sodium/ Dextrose 50 ml @ 100 mls/hr CUPOLA TAPPER HELPER IV 12/12/16 07:30 12/16/16 07:29 12/12/16 10:41 (Bicitra Liq) 30 ml CUPOLA TAPPER HELPER PO 12/12/16 08:00 12/16/16 07:59 12/12/16 10:41 Lactated Ringer's 1,000 ml @ 100 mls/hr Q10H IV 12/12/16 17:50 12/13/16 13:49 Oxytocin 500 ml @ 100 mls/hr UNSCH X1 PRN IV 12/12/16 23:00 12/13/16 22:59 12/12/16 15:16 (NS Flush) 2 ml BID IV FLUSH 12/12/16 21:00 (NS Flush) 2 ml UNSCH PRN IV FLUSH 12/12/16 13:00 (Mylicon Chew) 80 mg QID PRN PO 12/12/16 13:00 (Tylenol) 650 mg Q6H PRN PO 12/12/16 13:00 (Motrin) 600 mg Q6H PRN PO 12/12/16 13:00 (Toradol Inj) 60 mg UNSCH X1 PRN IM 12/12/16 13:00 12/13/16 12:59 (Toradol Inj) 30 mg Q6H PRN IM 12/12/16 13:00 12/13/16 12:59 (Percocet 5-325 Mg) 1 tab Q4H PRN PO 12/12/16 13:00 (Percocet 5-325 Mg) 2 tab Q4H PRN PO 12/12/16 13:00 (Iliana-Colace) 2 tab Q12H PRN PO 12/12/16 13:00 (Ambien) 5 mg HS PRN PO 12/12/16 13:00 (M-M-R Ii Inj) 0.5 ml ONCE ONCE SQ 12/13/16 16:00 12/13/16 16:01 (Boostrix Inj) 0.5 ml ONCE ONCE IM 12/13/16 16:00 12/13/16 16:01 (Zofran Inj) 4 mg Q6H PRN IV PUSH 12/12/16 13:00 (Narcan Inj) 0.4 mg UNSCH PRN IV 12/12/16 13:15 (Benadryl Inj) 25 mg Q6H PRN IV 12/12/16 13:15 (Benadryl) 25 mg Q6H PRN PO 12/12/16 13:15 (Morphine 1 Mg/ ml SHUTTLER) 30 mg UNSCH IV 12/12/16 13:15 12/12/16 23:13 SHUTTLER Dosage Infused (Pha) 1 Q8HR .XX 12/12/16 14:00 12/12/16 22:00 Assessment/Plan Problem List: (1) premature rupture of membranes (PPROM) with unknownonset of labor ICD Codes: O42.919 - premature rupture of membranes, unspecified as to length of time between rupture and onset oflabor, unspecified trimester Status: Acute (2) delivery delivered ICD Codes: O82 - Encounter for delivery without indication Assessment and Plan 31 y/o female who is POD # 1 s/p at 34 weeks gestation for PPROM. -Continue routine care. - Postop Hgb pending -Percocet and Motrin PRN pain. -Encouraged OOB. Advised pelvic rest for 6 wks. Will need a f/u appt. in 1 wk for incision check. -Re: ctrl, she would like to consider her options. - Discharge home in 1-[address] MD, R3 Dec 13, 2016 06:45
--- NOTE | 2016-12-13 07:42 | MP ---
cc: ROWENA BEAVERS MD DATE OF SURGERY 12/12/2016 PREOPERATIVE DIAGNOSIS 1. Intrauterine at 34 weeks 2. Breech presentation 3. Pre-term premature rupture of membranes times 16 days. 4. Obesity POSTOPERATIVE DIAGNOSIS 1. Intrauterine at 34 weeks 2. Breech presentation 3. Pre-term premature rupture of membranes times 16 days. 4. Obesity SURGEON Rowena Beavers MD STUDENT AMBASSADOR 1. Dr. Adriana Trujillo 2. Audrey McCrany PROCEDURE Primary low transverse section with two layer closure and no extensions by Pfannenstiel skin incision. INDICATIONS The patient is a 31-year-old primigravida patient who presented with ruptured membranes. She underwent magnesium sulfate for neuroprotection as she was under 32 weeks gestation at the time of presentation and she received a course of antibiotics and was managed expectantly. Plan as per maternal medicine was for delivery now at 34 weeks. FINDINGS A viable female infant in the footling breech presentation with 's of 4 and 9, with cord pH 7.29, weighing 4 pounds, 4 ounces with normal maternal anatomy. SPECIMENS REMOVED Placenta ESTIMATED BLOOD LOSS 750 cc URINE OUTPUT 200 cc clear urine at the end of the procedure. IV FLUIDS 2200 cc COMPLICATIONS None ANESTHESIA General PROCEDURE DESCRIPTION After obtaining informed consent, the risks, benefits and alternatives were discussed at length including, but not limited to pain, infection, bleeding, injury to other organs like the bladder, bowel, nerves and vessels, injury to the baby, need for repeat operation, need for hysterectomy, blood transfusion, wound infection, break down and other possible complications, all of which was discussed with the patient through a Bulgarian pile operator. The patient was taken to the operating room with reassuring heart tones and IVF running. Upon arrival to the operating room, reassuring heart tones were noted. After multiple attempts to place a spinal and epidural anesthesia, this was aborted and the patient was placed in the dorsal supine position with a leftward tilt. Reassuring heart tones were confirmed, the Pacheco catheter was placeda and she underwent induction of general anesthesia. A Pfannenstiel skin incision was made with a scalpel and carried down to the underlying fascia with the scalpel. The fascia was nicked in the midline with the scalpel and the fascial incision extended laterally with the curved Hawley scissors. The Jayda clamps were applied to the superior aspect of the fascial incision which was dissected off the underlying rectus muscles bluntly and with sharp dissection with the curved Hawley scissors. The Jayda clamps were applied to the inferior aspect of the fascial incision which was dissected off in a similar fashion. The rectus muscles were in the midline and the peritoneum entered bluntly. The peritoneal incision was extended bluntly. The Mike self-containing wound retractor was placed. The bladder was visualized and the bladder flap created by elevating the vesicouterine peritoneum and entering it sharply with the Metzenbaum scissors. This incision was extended with the Metzenbaum scissors and the bladder flap was created digitally. The lower uterine segment was incised with a scalpel by tenting up the lower uterine segment with Allis clamps and thinning out the lower uterine segment with the scalpel. The hysterotomy was created bluntly and extended bluntly. The hysterotomy was extended with the bandage scissors due to the thickness of the lower uterine segment. The feet were gently grasped and elevated through the hysterotomy. The body was delivered atraumatically in a rotational maneuver followed by individual atraumatic delivery of each arm and shoulders atraumatically in a rotational maneuver. The vertex was gently elevated through the hysterotomy and the cord was doubly clamped and cut. The was passed off to the awaiting neonatology team. The placenta was removed manually and the uterus was exteriorized and cleared of all clots and debris. The hysterotomy was repaired with a #1 chromic in a running locked fashion. A second layer of the same suture was used in an imbricating fashion and two of additional [id number] stitches were placed after which excellent hemostasis was noted. The uterus was returned to the abdomen and the gutters were clear of all clots and debris. The hysterotomy was noted to be hemostatic. The peritoneum was reapproximated with 2-0 Vicryl in a running fashion. The rectus muscles were examined and noted to be hemostatic. The fascia was reapproximated with #1 Vicryl in a running fashion. No defects were noted. The subcutaneous tissue was irrigated with warm normal saline and the subcutaneous tissue reapproximated with #1 Vicryl and 2-0 Vicryl in an interrupted fashion. The skin edges were reapproximated with 4-0 Monocryl in a subcuticular fashion. Excellent hemostasis and cosmesis were noted. Dermabond was placed. All sponge, lap and needle counts were correct times two. I performed all escamilla portions of the procedure. The patient was extubated in the operating room and taken to the PACU in stable condition. MD KANU Nick/FABIEN /11:30 PM /7:19 AM MTDElsa
[2016-12-13 08:05] LABS: AUTOMATED NEUTROPHIL # 11.6 TH/MM3 (1.8-7.7); BASOPHIL % 0.2 % (0.0-2.0); EOSINOPHIL # 0.2 TH/MM3 (0-0.4); EOSINOPHIL % 1.2 % (0.0-4.0); HEMATOCRIT 30.7 % (35.0-46.0); HEMO FLAGS DIFF FINAL; LYMPH % 14.8 % (9.0-44.0); LYMPHOCYTE # 2.2 TH/MM3 (1.0-4.8); MEAN CORPUSCULAR HEMOGLOBIN 31.1 PG (27.0-34.0); MEAN CORPUSCULAR HGB CONC 32.8 % (32.0-36.0); MONO % 6.3 % (0.0-8.0); NEUT % 77.5 % (16.0-70.0); PLATELET COUNT 221 TH/MM3 (150-450); RED BLOOD COUNT 3.24 MIL/MM3 (4.00-5.30); RED CELL DISTRIBUTION WIDTH 13.2 % (11.6-17.2)
[2016-12-13 08:20] VITALS: BP 127/74; PULSE 90; RESP 21; TEMP 97.9
[2016-12-13] MEDS: oxyCODONE/ACETAMINOPHEN 5 MG/325 MG TAB PO PRN ×2 (12:20→22:26)
[2016-12-13] MEDS: IBUPROFEN 600 MG TAB PO PRN ×2 (12:20→22:26)
[2016-12-13] MEDS ORDERED: MEASLES, MUMPS, RUBELLA VACCINE 0.5 ML VIAL SQ ONE (16:00)
[2016-12-13] MEDS ORDERED: DIPHTH/TETANUS/ACEL PERTUSSIS (BOOSTER) 0.5 ML VIAL/PFS IM ONE (16:00)
[2016-12-13 22:25] VITALS: BP 138/75; PULSE 95; RESP 20; TEMP 97.3
[2016-12-13] MEDS: DOCUSATE SODIUM 50 MG/SENNA 8.6 MG TAB PO PRN (22:26)
[2016-12-14] MEDS: oxyCODONE/ACETAMINOPHEN 5 MG/325 MG TAB PO PRN ×2 (06:05→20:23)
[2016-12-14] MEDS: IBUPROFEN 600 MG TAB PO PRN ×3 (06:05→20:23)
[2016-12-14 07:30] VITALS: BP 128/62; PULSE 83; RESP 18; TEMP 98.3
--- NOTE | 2016-12-14 08:18 | HHI.OB ---
Subjective Post Day: 2 Remarks POD day # 2. No acute issues overnight, vitals are stable, patient remains afebrile. Incision not draining. Decreasing lochia and pain. Patient is ambulating without difficulty and voiding independently. She is feeding the baby via breast/formula. She denies any nausea or vomiting and has a good appetite. Positive flatus/bowel movement. She denies any calf pain, chest pain , or shortness of breath. Objective Vitals/I&O Vital Signs Date Time Temp Pulse Resp B/P (MAP) Pulse Ox O2 Delivery O2 Flow Rate FiO2 12/13/16 22:25 97.3 95 20 138/75 (96) 12/13/16 08:20 97.9 90 21 127/74 (91) Objective Remarks GENERAL: Well-nourished, well-developed patient. CARDIOVASCULAR: Regular rate and rhythm without murmurs, gallops, or rubs. RESPIRATORY: Breath sounds equal bilaterally. No accessory muscle use. ABDOMEN/GI: Abdomen soft, non-tender. Fundus: Firm, non-tender at umbilicus. GENITOURINARY: Light to moderate bleeding. EXTREMITIES: No cyanosis or edema, non-tender, without signs of DVT. Medications and IVs Current Medications Medications (Trade) Dose Ordered Sig/Juan R Route Start Time Stop Time Status Last Admin Cefazolin Sodium/ Dextrose 50 ml @ 100 mls/hr INSECTICIDE SUPERVISOR IV 12/12/16 07:30 12/16/16 07:29 12/12/16 10:41 (Bicitra Liq) 30 ml INSECTICIDE SUPERVISOR PO 12/12/16 08:00 12/16/16 07:59 12/12/16 10:41 (NS Flush) 2 ml BID IV FLUSH 12/12/16 21:00 (NS Flush) 2 ml UNSCH PRN IV FLUSH 12/12/16 13:00 (Mylicon Chew) 80 mg QID PRN PO 12/12/16 13:00 (Tylenol) 650 mg Q6H PRN PO 12/12/16 13:00 (Motrin) 600 mg Q6H PRN PO 12/12/16 13:00 12/14/16 06:05 (Percocet 5-325 Mg) 1 tab Q4H PRN PO 12/12/16 13:00 12/14/16 06:05 (Percocet 5-325 Mg) 2 tab Q4H PRN PO 12/12/16 13:00 (Iliana-Colace) 2 tab Q12H PRN PO 12/12/16 13:00 12/13/16 22:26 (Ambien) 5 mg HS PRN PO 12/12/16 13:00 (Zofran Inj) 4 mg Q6H PRN IV PUSH 12/12/16 13:00 Assessment/Plan Problem List: (1) premature rupture of membranes (PPROM) with unknownonset of labor ICD Codes: O42.919 - premature rupture of membranes, unspecified as to length of time between rupture and onset oflabor, unspecified trimester Status: Acute (2) delivery delivered ICD Codes: O82 - Encounter for delivery without indication Assessment and Plan 31 y/o female who is POD # 2 s/p at 34 weeks gestation for PPROM. -Continue routine care. -Percocet and Motrin PRN pain. -Encouraged OOB. Advised pelvic rest for 6 wks. Will need a f/u appt. in 1 wk for incision check. -Re: ctrl, she would like to consider her options. - Discharge home today or tomorrow. dw Dr. Chauhan, Dr. Cassandra Malhotra,Richar Gilliam MD R1 Dec 14, 2016 08:18
[2016-12-14] MEDS: DOCUSATE SODIUM 50 MG/SENNA 8.6 MG TAB PO PRN (14:21)
[2016-12-14 20:07] VITALS: RESP 20; TEMP 98.3
[2016-12-14 20:08] VITALS: BP 129/79; PULSE 93
[2016-12-15] MEDS: oxyCODONE/ACETAMINOPHEN 5 MG/325 MG TAB PO PRN (06:14)
[2016-12-15] MEDS: IBUPROFEN 600 MG TAB PO PRN (06:15)
--- NOTE | 2016-12-15 07:16 | HHI.OB ---
Subjective Remarks POD day # 3. No acute issues overnight, vitals are stable, patient remains afebrile. Incision not draining. Decreasing lochia and pain. Patient is ambulating without difficulty and voiding independently. She is feeding the baby via breast. She denies any nausea or vomiting and has a good appetite. Positive flatus/bowel movement. She denies any calf pain, chest pain, or shortness of breath. She is bonding well with . Objective Vitals/I&O Vital Signs Date Time Temp Pulse Resp B/P (MAP) Pulse Ox O2 Delivery O2 Flow Rate FiO2 12/14/16 21:23 18 12/14/16 21:23 18 12/14/16 20:08 93 129/79 (96) 12/14/16 20:07 20 12/14/16 20:07 98.3 12/14/16 07:30 98.3 83 18 128/62 (84) Result Diagram: 12/13/16726 Objective Remarks GENERAL: Well-nourished, well-developed patient. CARDIOVASCULAR: Regular rate and rhythm without murmurs, gallops, or rubs. RESPIRATORY: Breath sounds equal bilaterally. No accessory muscle use. ABDOMEN/GI: Abdomen soft, non-tender, bowel sounds present. Incision: Clean, dry and intact. Fundus: Firm, non-tender at umbilicus. GENITOURINARY: Light to moderate bleeding. EXTREMITIES: No cyanosis or edema, non-tender, without signs of DVT. Medications and IVs Current Medications Medications (Trade) Dose Ordered Sig/Juan R Route Start Time Stop Time Status Last Admin Cefazolin Sodium/ Dextrose 50 ml @ 100 mls/hr FLOORWORKER DISTRIBUTOR IV 12/12/16 07:30 12/16/16 07:29 12/12/16 10:41 (Bicitra Liq) 30 ml FLOORWORKER DISTRIBUTOR PO 12/12/16 08:00 12/16/16 07:59 12/12/16 10:41 (NS Flush) 2 ml BID IV FLUSH 12/12/16 21:00 (NS Flush) 2 ml UNSCH PRN IV FLUSH 12/12/16 13:00 (Mylicon Chew) 80 mg QID PRN PO 12/12/16 13:00 (Tylenol) 650 mg Q6H PRN PO 12/12/16 13:00 (Motrin) 600 mg Q6H PRN PO 12/12/16 13:00 12/15/16 06:15 (Percocet 5-325 Mg) 1 tab Q4H PRN PO 12/12/16 13:00 12/15/16 06:14 (Percocet 5-325 Mg) 2 tab Q4H PRN PO 12/12/16 13:00 12/14/16 14:21 (Iliana-Colace) 2 tab Q12H PRN PO 12/12/16 13:00 12/14/16 14:21 (Ambien) 5 mg HS PRN PO 12/12/16 13:00 (Zofran Inj) 4 mg Q6H PRN IV PUSH 12/12/16 13:00 Assessment/Plan Problem List: (1) premature rupture of membranes (PPROM) with unknownonset of labor ICD Codes: O42.919 - premature rupture of membranes, unspecified as to length of time between rupture and onset oflabor, unspecified trimester Status: Acute (2) delivery delivered ICD Codes: O82 - Encounter for delivery without indication Assessment and Plan 31 y/o female who is POD # 3 s/p at 34 weeks gestation for PPROM. -Continue routine care. -Percocet and Motrin PRN pain. -Encouraged OOB. Advised pelvic rest for 6 wks. Will need a f/u appt. in 1 wk for incision check. -Re: ctrl, she would like to consider her options. - Discharge home today. praveena Beavers, Dr. Malhotra R1 Lisa Trujillo MD, R3 Dec 15, 2016 07:16
[2016-12-15] MEDS ORDERED: PERI8.6T PO (07:17)
[2016-12-15] MEDS ORDERED: IBUP-232 PO (07:17)
[2016-12-15] MEDS ORDERED: OXYC1TAB63 PO (07:17)
--- NOTE | 2016-12-15 07:18 | HHI.DCPOC ---
Discharge Care Plan Diagnosis: (1) delivery delivered Report Symptoms to Your Doctor -Temperature above 100.5 degrees -Redness, of incision or excessive or foul smelling drainage -Unusual pain or calf pain -Increased vaginal bleeding -Painful or difficulty urinating -Feelings of extreme sadness or anxiety after 2 weeks Goals to Promote Your Health * To prevent worsening of your condition and complications * To maintain your health at the optimal level Directions to Meet Your Goals Take your medications as prescribed Follow your dietary instruction Follow activity as directed Ensure plenty of rest for recovery Drink fluids for hydration Keep your appointments as scheduled Take your immunizations and boosters as scheduled If your symptoms worsen call your PCP, if no PCP go to Urgent Care Center or Emergency Room Smoking is Dangerous to Your Health. Avoid second hand smoke Call the 24-hour crisis hotline for domestic abuse at Lisa Trujillo MD, R3 Dec 15, 2016 07:18
[2016-12-15 07:55] VITALS: BP 104/55; PULSE 96; RESP 16; TEMP 98.2
== END 2016-12-15 11:53 | disposition home or self-care (01) | DRG 766 ==
LOC: HOBED 13:22 → H2EA 14:41 → H1EA 12-12 15:03
PROVIDERS: ADMIT Obstetrics & Gynecology Obstetrics; ATTEND Obstetrics & Gynecology Obstetrics
PROC: 10D00Z1 Extraction of Products of Conception, Low, Open Approach (ICD-10-PCS; principal; 2016-12-12)
DX: O42.913 Preterm premature rupture of membranes, unspecified as to length of time between rupture and onset of labor, third trimester (principal); O32.8XX0 Maternal care for other malpresentation of fetus, not applicable or unspecified; O99.214 Obesity complicating childbirth; E66.9 Obesity, unspecified; Z68.36 Body mass index [BMI] 36.0-36.9, adult; Z37.0 Single live birth; Z3A.34 34 weeks gestation of pregnancy
CPT/HCPCS: 59025; 76815; 80307; 81001; 82805; 84112; 85007; 85025; 85027; 86850; 86900; 86901; 87070; 87081; 87150; 87205; 88307; G0481; J0290; J0690; J0702; J2270; J2405; J2540; J2590; J3010; J7120